=== PATIENT | male | born 2000 | race African-American/Black ===

== ENCOUNTER 2021-06-03 18:51 | Inpatient (IN) | payer OTHER, SELFPAY ==
[2021-06-03] VITALS (7 sets, daily range): BP systolic 123–150; BP diastolic 64–92; PULSE 109–112; RESP 14–18; TEMP 36.1–36.8; O2SAT 98; BMI 23.6
--- NOTE | ~2021-06-03 | CT_ITS ---
EXAMINATION: CT HEAD WITHOUT CONTRAST CLINICAL INFORMATION: Subacute mental status change. COMPARISON: None available. TECHNIQUE: Contiguous axial imaging was performed from the skull base to vertex without intravenous administration of contrast. This CT examination was performed using dose optimization techniques as appropriate, variously including the following: *Automated exposure control. *Adjustment of mA and/or kV according to patient size (this includes techniques or standardized protocols for targeted exams where dose is matched to indication/reason for exam; i.e. extremities or head). *Use of iterative reconstruction technique. DLP: 701 mGy-cm FINDINGS: There is no evidence of acute intracranial hemorrhage or edematous territorial infarction. There is no abnormal attenuation within the brain parenchyma. Garcia-white matter differentiation is preserved. The ventricles are normal in size and configuration. No evidence for obstructive hydrocephalus. No abnormal mass effect or midline shift. No extra-axial fluid collections. No acute soft tissue or osseous abnormalities. Mild mucosal thickening of the paranasal sinuses. Mild nasal septal deviation. The mastoid air cells and middle ear cavities are clear. CT/CT head/brain wo con IMPRESSION: No evidence of acute intracranial hemorrhage or edematous territorial infarction.
[2021-06-03 19:38] LABS: COVID-19 Test Negative (Negative)
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
[2021-06-03] MEDS: LORazepam 2 MG/ML VIAL IM (20:25)
[2021-06-03] MEDS: Haloperidol Lactate 5 MG/ML VIAL IM (20:25)
[2021-06-03] MEDS: diphenhydrAMINE HCL 50 MG/ML VIAL 25 MG IM (20:25)
[2021-06-03 20:46] LABS: MANUAL DIFF FLAG NO
[2021-06-03 20:47] LABS: Basophils Absolute Auto 0.1 X10*3/uL (0.0-0.2); Basophils Percent Auto 0.5 % (0-2); Eosinophils Percent Auto 0.1 % (0-4); Hemoglobin 18.6 g/dl (14.0-18.0); Imm Gran Abs Auto 0.05 X10*3/uL (0.00-0.03); Imm Gran Pct Auto 0.3 % (0.0-0.4); Lymphocytes Absolute Auto 2.2 X10*3/uL (1.2-4.9); Lymphocytes Percent Auto 14.8 % (20-40); Mean Corpuscular HGB Conc 33.6 g/dl (31.0-36.0); Mean Corpuscular Hemoglobin 30.3 pg (27.0-33.0); Mean Corpuscular Volume 90.1 fL (80.0-98.0); Mean Platelet Volume 10.3 fL (9.4-12.4); Monocytes Percent Auto 6.6 % (2-11); Neutrophils Absolute Auto 11.3 x10*3/uL (2.0-8.3); Neutrophils Percent Auto 77.7 % (45-73); Platelet Count 364 X10*3/uL (160-400); Red Blood Count 6.14 X10*6/uL (4.60-5.80); Red Cell Distribution Width 12.2 % (11.0-16.0); White Blood Count 14.5 X10*3/uL (4.8-10.8)
[2021-06-03 21:01] LABS: Ethanol < 10 mg/dL
[2021-06-03 21:13] LABS: Alanine Aminotransferase 25 U/L (0-40); Albumin Level 5.2 g/dL (3.5-5.0); Alkaline Phosphatase 123 U/L (39-117); Anion Gap 21 (12-20); Aspartate Amino Transferase 18 U/L (5-37); Bilirubin Direct 0.4 mg/dL (0.0-0.5); Blood Urea Nitrogen 10 mg/dL (9-16); Calcium 11.1 mg/dL (8.4-10.2); Carbon Dioxide 27 mmol/L (22-29); Chloride 98 mmol/L (96-108); Creatinine Clr Calc Pharmacy 101.3; Estimated Glomerular Filt Rate > 60; Glucose Random 109 mg/dL (60-115); Magnesium 2.1 mg/dL (1.6-2.6); Potassium 4.3 mmol/L (3.3-5.1); Sodium 142 mmol/L (135-145); Total Protein 8.8 g/dL (6.5-8.0)
[2021-06-03 21:26] LABS: Hematocrit 55.3 % (42.0-52.0)
--- NOTE | 2021-06-04 05:53 | PC.NURSE ---
Patient slept through the night, no distress observed/reported, patient was chemically restraint with Haldol 5 mg IM, Ativan 2 mg IM, and Benadryl 525 mg IM @ 2024 for increased aggression/throwing things/engaging in unsafe behavior, per N patient was partially evaluated by [facility] in the community, no disposition established, patient will be re-eval in the morning by [facility], med rec completed/approved, VSS, will continue to monitor.
--- NOTE | 2021-06-04 07:24 | PC.NURSE ---
patient appears to remain asleep at present respirations are even and unlabored patient appears in no distress
[2021-06-04 09:20] VITALS: BP 135/104; PULSE 114; RESP 16; TEMP 37.1; O2SAT 98
[2021-06-04 10:12] LABS: Amphetamine Screen Urine POSITIVE (Not Detect); Barbiturates, Urine Not Detected (Not Detect); Benzodiazepines Screen Urine Not Detected (Not Detect); Cannabinoid Screen Urine Not Detected (Not Detect); Cocaine Screen Urine Not Detected (Not Detect); Fentanyl, urine Not Detected (Not Detect); Opiate Screen Urine Not Detected (Not Detect); Phencyclidine Screen Urine Not Detected (Not Detect)
[2021-06-04] MEDS: hydrOXYzine HCL 50 MG TABLET PO ×2 (11:30→16:14)
--- NOTE | 2021-06-04 12:04 | PC.NURSE ---
patient needs about q5 minute reminders to maintain safe behavior states im bored climbing on furniture, intrusive with peers.
[2021-06-04] MEDS: Mirtazapine 30 MG TABLET PO (21:04)
[2021-06-04] MEDS: diphenhydrAMINE HCL 25 MG TABLET 50 MG PO ×2 (22:37→22:40)
[2021-06-04] MEDS: LORazepam 1 MG TABLET 2 MG PO ×2 (22:37→22:41)
[2021-06-04] MEDS: HaloperidoL 5 MG TABLET PO (22:37)
[2021-06-04] MEDS: Ibuprofen 600 MG TABLET PO (22:40)
[2021-06-04 23:29] VITALS: BP 156/95; PULSE 115; RESP 20; TEMP 36.7; O2SAT 97
--- NOTE | 2021-06-05 06:52 | PC.NURSE ---
Patient slept through the night, no distress observed/reported, behavior hyper-sexual, medication compliant, disorganized thought process, increased agitation provider notified/ordered Ativan 2 mg PO, Haldol 5 mg PO and Benadryl 50 mg po, administered at 2257 with positive effect, VSS, patient's disposition per [facility] is section 12 inpatient bed search, will continue to monitor.
--- NOTE | 2021-06-05 07:15 | PC.NURSE ---
patient (at start of shift) remained at rest respirations are even and unlabored, patient appears in no distress
[2021-06-05] MEDS: LORazepam 1 MG TABLET 2 MG PO ×2 (08:04→23:07)
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
--- NOTE | 2021-06-05 10:03 | PC.NURSE ---
patient exhibiting some challenging behaviors this morning, mumbling repeated statements at nurses station and not changing his verbal delivery when reuested, banging and rattling doors, climbing up on chairs and furniture and slow to be redirected, patient wanting extra support to dial a phone when yesterday client was capable. repeatedly asking same questions.
[2021-06-05] MEDS: diphenhydrAMINE HCL 25 MG TABLET 50 MG PO (10:35)
[2021-06-05] MEDS: HaloperidoL 5 MG TABLET PO ×2 (10:41→23:07)
--- NOTE | 2021-06-05 11:04 | PC.NURSE ---
patient repeatedly climbing on furniture and refusing to foilow directions
[2021-06-05 11:37] VITALS: BP 134/80; PULSE 102; RESP 18; TEMP 36.6; O2SAT 99
[2021-06-05 11:47] LABS: COVID-19 Test Negative (Negative)
[2021-06-05] MEDS: Acetaminophen 325 MG TABLET 650 MG PO ×2 (12:20→19:10)
--- NOTE | 2021-06-05 15:29 | PC.NURSE ---
administered second dose of ativan 2mg po at 1515. scanning device not working
[2021-06-05 17:25] VITALS: BMI 21.4
[2021-06-05 17:30] VITALS: BP 134/80; PULSE 95; RESP 16; TEMP 36.6; O2SAT 98
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
[2021-06-05 20:52] VITALS: BP 125/80; PULSE 98; TEMP 36.6; O2SAT 98
[2021-06-05] MEDS: Mirtazapine 30 MG TABLET PO (20:57)
[2021-06-05] MEDS: hydrOXYzine HCL 25 MG TABLET PO (21:46)
[2021-06-05] MEDS: traZODone HCL 50 MG TABLET PO ×2 (21:46→22:42)
--- NOTE | 2021-06-06 06:33 | PC.NURSE ---
patient woke up at 0630 and came to the nurses station asking for something to drink. it was noted that he had had some blood on the tip of his nose and at the corner of his left eye. left eye had been a smear from his nose. a droplet amount of blood was noted on his fitted sheet otherwise no other traces seen at this time, it was difficult illuminate his room as his roommate was asleep. patient requested the use of his phone, was informed about phone use, stated he was cold, requested and received additional blankets, fitted sheet changed, urinated, then went to bed.
[2021-06-06 09:00] VITALS: BP 145/77; PULSE 117; RESP 16; TEMP 36.7; O2SAT 98
[2021-06-06] MEDS: HaloperidoL 5 MG TABLET PO ×4 (11:19→22:39)
[2021-06-06] MEDS: LORazepam 1 MG TABLET 2 MG PO ×3 (11:19→22:39)
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
[2021-06-06] MEDS: Acetaminophen 325 MG TABLET 650 MG PO (15:14)
--- NOTE | 2021-06-06 17:26 | PC.NURSE ---
Patient placed on 1:1 constant observation. Patient is difficult to redirect, continues intrusive and inappropriate with female staff on unit. Had been pushing on exit doors, intermittently kicking the wall, stood on community room furniture. Antagonistic toward male peer on unit.
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
[2021-06-06 17:50] VITALS: BP 128/91; PULSE 109; RESP 16
[2021-06-06] MEDS: Ibuprofen 600 MG TABLET PO (17:57)
--- NOTE | 2021-06-06 18:58 | PC.NURSE ---
Patient submitted 3 day note. Up on 06/10/21.
[2021-06-06 20:54] VITALS: BP 127/68; PULSE 94; TEMP 36.7; O2SAT 95
[2021-06-06] MEDS: Mirtazapine 30 MG TABLET PO (20:59)
[2021-06-07 08:51] VITALS: BP 142/76; PULSE 108; RESP 19; TEMP 36.7; O2SAT 99
[2021-06-07] MEDS: HaloperidoL 1 MG TABLET 2 MG PO (08:52)
[2021-06-07 09:01] LABS: Alanine Aminotransferase 18 U/L (0-40); Albumin Level 4.2 g/dL (3.5-5.0); Alkaline Phosphatase 95 U/L (39-117); Aspartate Amino Transferase 17 U/L (5-37); Bilirubin Direct 0.2 mg/dL (0.0-0.5); Bilirubin Total 0.3 mg/dL (0.0-1.0); Total Protein 7.3 g/dL (6.5-8.0)
[2021-06-07] MEDS: Ibuprofen 600 MG TABLET PO (11:43)
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
[2021-06-07] MEDS: Acetaminophen 325 MG TABLET 650 MG PO (16:06)
[2021-06-07 18:00] VITALS: BP 139/83; PULSE 109; RESP 16; TEMP 36.8; O2SAT 97
[2021-06-07] MEDS: LORazepam 1 MG TABLET 2 MG PO (20:10)
[2021-06-07] MEDS: HaloperidoL 5 MG TABLET PO ×2 (20:10→20:57)
[2021-06-07] MEDS: Mirtazapine 30 MG TABLET PO (20:11)
[2021-06-07] MEDS: Benztropine Mesylate 0.5 MG TABLET PO (20:56)
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
[2021-06-08] MEDS: Ibuprofen 600 MG TABLET PO ×2 (08:01→15:56)
[2021-06-08] MEDS: HaloperidoL 1 MG TABLET 2 MG PO (08:01)
[2021-06-08 08:58] VITALS: BP 133/81; PULSE 99; RESP 18; TEMP 36.2; O2SAT 99
[2021-06-08] MEDS: HaloperidoL 5 MG TABLET PO ×3 (09:01→21:59)
[2021-06-08] MEDS: LORazepam 1 MG TABLET 2 MG PO ×5 (09:02→21:59)
--- NOTE | 2021-06-08 09:22 | PC.NURSE ---
Pt administered dose of Vyvanse 40 MG PO in error (standing order that was suppose to be held this AM). Dr. Pool and nursing blueprinting and photocopy supervisor, Lily notified. No further orders. VSS BP 133/81, P 99, RR 18, T 97.1, O2 99% RA. Will continue to monitor.
[2021-06-08] MEDS: Acetaminophen 325 MG TABLET 650 MG PO (11:21)
[2021-06-08] MEDS: HaloperidoL 5 MG TABLET 10 MG PO (13:01)
--- NOTE | 2021-06-08 16:36 | P.PNPSI_ITS ---
Subjective Subjective Date of Service: 06/08/21 Reason For Visit: SI/HI Subjective Notes: 3 Day Medical Problems Affecting Mental Status: No Interim History: And the patient. Discussed with Nursing. Noted 3 day notice. Has been very intrusive. One-to-one observation given same, provoking others. Sexual comments and proactive behavior. Has been eating Haldol and Ativan p.r.n.. Has been climbing on top of tables and chairs. Verbally hostile. Over the last 2-3 days has utilized Haldol 5 mg up to 4 times in a given day. Has also been utilizing Ativan. With engineering technical writer he is pleasant. Affect restricted. Was apologetic around behaviors yesterday. Reports he has been hearing voices for months talking about the devil. Reports wanting to return home to his mom. Did discuss medications and increasing scheduled doses given p.r.n. needs and he was open to same. Feels supported by staff. Feels safe. Sleep has been okay. Denied SI or HI. Denied medication side effects. Medication Compliance: Yes Side effects from medications: No Attending Groups: No Review of Systems Acute medical concerns: No Review of Systems Review of Systems Unremarkable Mental Status Exam Mental Status Exam Narrative: pleasant. Casually dressed. Fair hygiene. On one-to-one observation. Intrusive. Restricted affect. No SI. No HI. Does endorse command hallucinations. Sexually inappropriate comments. Insight and judgment limited Diagnostics Vital Signs (24Hr): Vital Signs - 24 hr 06/07/21 18:00 06/08/21 08:58 Temperature 98.2 F 97.1 F Pulse Rate 109 H 99 Respiratory Rate 16 18 Blood Pressure 139/83 133/81 Pulse Oximetry 97 99 BMI result Body Mass Index 21.4 Labs Results: 06/03/21 20:41 06/03/21 20:41 Labs: Laboratory Results - last 48 hr 06/07/21 08:32 Total Bilirubin 0.3 Direct Bilirubin 0.2 AST 17 ALT 18 Alkaline Phosphatase 95 D Total Protein 7.3 Albumin 4.2 Medications Medications Current Medications Acetaminophen (Acetaminophen 325 Mg Tablet) 650 mg PO Q6H PRN PRN Reason: Headache/Pain Mild Scale (1-3) Last Admin: 06/08/21 11:21 Dose: 650 mg Documented by: Al Hydroxide/Mg Hydroxide (Magnesium Hydrox/Alum Hydrox 30 Ml Oral.Susp) 30 ml PO Q6H PRN PRN Reason: Heartburn/Nausea Benztropine Mesylate (Benztropine Mesylate 0.5 Mg Tablet) 0.5 mg PO TID PRN PRN Reason: Extrapyramidal Effects Last Admin: 06/07/21 20:56 Dose: 0.5 mg Documented by: Haloperidol (Haloperidol 5 Mg Tablet) 5 mg PO Q4H PRN PRN Reason: agitation Last Admin: 06/08/21 09:01 Dose: 5 mg Documented by: Haloperidol (Haloperidol 5 Mg Tablet) 5 mg PO BEDTIME [facility] Last Admin: 06/07/21 20:10 Dose: 5 mg Documented by: Haloperidol (Haloperidol 5 Mg Tablet) 10 mg PO BID@0830,1330 [facility] Last Admin: 06/08/21 13:01 Dose: 10 mg Documented by: Hydroxyzine HCl (Hydroxyzine Hcl 25 Mg Tablet) 25 mg PO BEDTIME PRN PRN Reason: Anxiety Last Admin: 06/05/21 21:46 Dose: 25 mg Documented by: Ibuprofen (Ibuprofen 600 Mg Tablet) 600 mg PO Q8H PRN PRN Reason: Pain, Mild (Pain Scale 1-3) Last Admin: 06/08/21 15:56 Dose: 600 mg Documented by: Lorazepam (Lorazepam 1 Mg Tablet) 2 mg PO Q4H PRN PRN Reason: agitation Last Admin: 06/08/21 09:02 Dose: 2 mg Documented by: Lorazepam (Lorazepam 1 Mg Tablet) 2 mg PO QID [facility] Last Admin: 06/08/21 15:58 Dose: 2 mg Documented by: Magnesium Hydroxide (Milk Of Magnesia 30 Ml Oral.Susp) 30 ml PO DAILY PRN PRN Reason: Constipation Mirtazapine (Mirtazapine 30 Mg Tablet) 30 mg PO BEDTIME [facility] Last Admin: 06/07/21 20:11 Dose: 30 mg Documented by: Pt Own Med (Vyvanse (40mg Capsules)) 1 each PO DAILY [facility] Last Admin: 06/07/21 08:52 Dose: 1 each Documented by: Trazodone HCl (Trazodone Hcl 50 Mg Tablet) 50 mg PO BEDTIME PRN PRN Reason: Insomnia Last Admin: 06/05/21 22:42 Dose: 50 mg Documented by: Allergies Allergies Allergy/AdvReac Type Severity Reaction Status Date / Time No Known Allergies Allergy Unverified 02/02/20 17:08 [No Known Allergies*] Assessment & Plan Assessment & Plan (1) Suicidal ideation: Status: Acute Code(s): R45.851 - Suicidal ideations Assessment and Plan: reportedly resolved (2) Homicidal ideations: Status: Acute Code(s): R45.850 - Homicidal ideations Assessment and Plan: still struggling with thoughts of harming others. acknowledged 06/06 he has an anger management problem, 06/07 said his anger has gone. (3) Psychosis: Status: Acute Code(s): F29 - Unspecified psychosis not due to a substance or known physiological condition Assessment and Plan: per collateral from mother, AH are new. 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 Assessment and Plan: continue remeron. hold vyvanse as of 06/08 to see if Sx change. PRNs of haldol and ativan. collateral from mother obtained. message left for ara prescriber, to call back. 06/08: paced up p.r.n. needs, will increase schedule Haldol to 10 mg morning and afternoon 5 mg at bedtime and continue with 5 mg as needed. Will schedule Ativan 2 mg 4 times per day and 2 mg as needed. Maintain one-to-one observation I spent minutes with the patient and/or on the patient floor today, greater than?50% of which was spent counseling/coordinating care. Reason for contiued inpatient stay Substantial Risk for: harm to others, inability to function and rapid decomp ensation
[2021-06-08] MEDS: Mirtazapine 30 MG TABLET PO (20:31)
[2021-06-08 20:33] VITALS: BP 138/84; PULSE 98; TEMP 36.6
[2021-06-08] MEDS: hydrOXYzine HCL 25 MG TABLET PO (21:59)
[2021-06-09 08:13] VITALS: BP 133/88; PULSE 100; RESP 17; TEMP 36.6; O2SAT 100
[2021-06-09] MEDS: HaloperidoL 5 MG TABLET 10 MG PO ×2 (08:25→13:13)
[2021-06-09] MEDS: LORazepam 1 MG TABLET 2 MG PO ×4 (08:26→20:52)
[2021-06-09] MEDS: Acetaminophen 325 MG TABLET 650 MG PO (08:26)
--- NOTE | 2021-06-09 11:40 | HO.PSYCHPN ---
Subjective Subjective Date of Service: 06/09/21 Reason For Visit: SI/HI Interim History: Discussed with Nursing. Noted 3 day notice. Has been accepting increased doses of Haldol and Ativan on a scheduled basis since yesterday. Does appear slightly less intrusive and irritable and paranoid today. Appears slightly sedated. Sleeping well. Tolerating one-to-one observation. Appears less psychotic. Feels supported by staff. Feels safe. No evidence of SI or HI. Medication Compliance: Yes Side effects from medications: Yes ( might have some sedation) Attending Groups: No Review of Systems Acute medical concerns: No Review of Systems Review of Systems Unremarkable Yes all other systems are reviewed and are negative Mental Status Exam Mental Status Exam Narrative: pleasant. seen in room. Casually dressed. Fair hygiene. On one-to-one observation. Does appear sedate, But able to engage in interview. Affect restricted. Appears less psychotic today. Is accepting treatment but insight and judgment remains limited. Diagnostics Vital Signs (24Hr): Vital Signs - 24 hr 06/08/21 20:33 06/09/21 08:13 Temperature 97.8 F 97.8 F Pulse Rate 98 100 Respiratory Rate 17 Blood Pressure 138/84 133/88 Pulse Oximetry 100 BMI result Body Mass Index 21.4 Labs Results: 06/03/21 20:41 06/03/21 20:41 Medications Medications Current Medications Acetaminophen (Acetaminophen 325 Mg Tablet) 650 mg PO Q6H PRN PRN Reason: Headache/Pain Mild Scale (1-3) Last Admin: 06/09/21 08:26 Dose: 650 mg Documented by: Al Hydroxide/Mg Hydroxide (Magnesium Hydrox/Alum Hydrox 30 Ml Oral.Susp) 30 ml PO Q6H PRN PRN Reason: Heartburn/Nausea Benztropine Mesylate (Benztropine Mesylate 0.5 Mg Tablet) 0.5 mg PO TID PRN PRN Reason: Extrapyramidal Effects Last Admin: 06/07/21 20:56 Dose: 0.5 mg Documented by: Haloperidol (Haloperidol 5 Mg Tablet) 5 mg PO Q4H PRN PRN Reason: agitation Last Admin: 06/08/21 21:59 Dose: 5 mg Documented by: Haloperidol (Haloperidol 5 Mg Tablet) 5 mg PO BEDTIME [facility] Last Admin: 06/08/21 20:31 Dose: 5 mg Documented by: Haloperidol (Haloperidol 5 Mg Tablet) 10 mg PO BID@0830,1330 [facility] Last Admin: 06/09/21 08:25 Dose: 10 mg Documented by: Hydroxyzine HCl (Hydroxyzine Hcl 25 Mg Tablet) 25 mg PO BEDTIME PRN PRN Reason: Anxiety Last Admin: 06/08/21 21:59 Dose: 25 mg Documented by: Ibuprofen (Ibuprofen 600 Mg Tablet) 600 mg PO Q8H PRN PRN Reason: Pain, Mild (Pain Scale 1-3) Last Admin: 06/08/21 15:56 Dose: 600 mg Documented by: Lorazepam (Lorazepam 1 Mg Tablet) 2 mg PO Q4H PRN PRN Reason: agitation Last Admin: 06/08/21 21:59 Dose: 2 mg Documented by: Lorazepam (Lorazepam 1 Mg Tablet) 2 mg PO QID [facility] Last Admin: 06/09/21 08:26 Dose: 2 mg Documented by: Magnesium Hydroxide (Milk Of Magnesia 30 Ml Oral.Susp) 30 ml PO DAILY PRN PRN Reason: Constipation Mirtazapine (Mirtazapine 30 Mg Tablet) 30 mg PO BEDTIME [facility] Last Admin: 06/08/21 20:31 Dose: 30 mg Documented by: Pt Own Med (Vyvanse (40mg Capsules)) 1 each PO DAILY [facility] Last Admin: 06/07/21 08:52 Dose: 1 each Documented by: Trazodone HCl (Trazodone Hcl 50 Mg Tablet) 50 mg PO BEDTIME PRN PRN Reason: Insomnia Last Admin: 06/05/21 22:42 Dose: 50 mg Documented by: Allergies Allergies Allergy/AdvReac Type Severity Reaction Status Date / Time No Known Allergies Allergy Unverified 02/02/20 17:08 [No Known Allergies*] Assessment & Plan Assessment & Plan (1) Suicidal ideation: Status: Acute Code(s): R45.851 - Suicidal ideations Assessment and Plan: reportedly resolved (2) Homicidal ideations: Status: Acute Code(s): R45.850 - Homicidal ideations Assessment and Plan: still struggling with thoughts of harming others. acknowledged 06/06 he has an anger management problem, 06/07 said his anger has gone. (3) Psychosis: Status: Acute Code(s): F29 - Unspecified psychosis not due to a substance or known physiological condition Assessment and Plan: per collateral from mother, AH are new. 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 Assessment and Plan: continue remeron. hold vyvanse as of 06/08 to see if Sx change. PRNs of haldol and ativan. collateral from mother obtained. message left for ara, prescriber, to call back. 06/08: paced up p.r.n. needs, will increase schedule Haldol to 10 mg morning and afternoon 5 mg at bedtime and continue with 5 mg as needed. Will schedule Ativan 2 mg 4 times per day and 2 mg as needed. Maintain one-to-one observation 06/09: Does appear to be less psychotic, less intrusive and impulsive and irritable with scheduled Haldol and Ativan. May be having some sedation on same. Balancing mental state and sedation, would continue current regimen and continue to review this on a daily basis plus or minus adjust medications if there is ongoing sedation and mental state is improving. Remains on one-to-one observation and this should be continued to reviewed on a daily basis. I spent minutes with the patient and/or on the patient floor today, greater than?50% of which was spent counseling/coordinating care. Reason for contiued inpatient stay Substantial Risk for: inability to function
[2021-06-09 18:00] VITALS: BP 150/94; PULSE 99; RESP 18; TEMP 36.8; O2SAT 100
[2021-06-09] MEDS: traZODone HCL 50 MG TABLET PO (20:52)
[2021-06-09] MEDS: Mirtazapine 30 MG TABLET PO (20:52)
[2021-06-09] MEDS: hydrOXYzine HCL 25 MG TABLET PO (20:53)
[2021-06-09] MEDS: HaloperidoL 5 MG TABLET PO (21:08)
[2021-06-10] MEDS: Magnesium Hydrox/Alum Hydrox 30 ML ORAL.SUSP PO (02:00)
[2021-06-10] MEDS: Ibuprofen 600 MG TABLET PO (02:00)
[2021-06-10 06:00] VITALS: BP 127/80; PULSE 91; TEMP 36.1; O2SAT 100
[2021-06-10] MEDS: LORazepam 1 MG TABLET 2 MG PO ×2 (08:29→12:59)
[2021-06-10] MEDS: HaloperidoL 5 MG TABLET 10 MG PO ×2 (08:30→12:58)
--- NOTE | 2021-06-10 16:48 | P.PNPSI_ITS ---
Subjective Subjective Date of Service: 06/10/21 Reason For Visit: SI/HI Interim History: pt alva in his room late morning, asleep, rousable to voice. did not get out of bed for interview, fell back asleep repeatedly. asked for discharge today. informed both his mother and his doctor think he should stay; he seemed initially responsive to this information and seemed to indicate he might stay then; he was informed he could sign in voluntarily if that were the case. shortly afterward he again asked to leave today. no other requests or complaints. per staff, on 1:1 for inappropriate sexualized and intrusive behaviors. per staff, telling female staff he wants to fuck the shit out of them. also has asked female peers if they date men and is otherwise intrusive and inappropriate. pacing the halls much, sometimes sprinting the halls. eating and sleeping well. med-compliant. Mental Status Exam Mental Status Exam Narrative: somnolent, under bedsheets lying in bed, cooperative with interview. no PMA/PMR observed. speech soft, slowed, slurred slightly. thoughts linear, logic questionable. affect blunted. Diagnostics Vital Signs (24Hr): Vital Signs - 24 hr 06/09/21 18:00 06/10/21 06:00 Temperature 98.2 F 96.9 F Pulse Rate 99 91 Respiratory Rate 18 Blood Pressure 150/94 H 127/80 Pulse Oximetry 100 100 BMI result Body Mass Index 21.4 Labs Results: 06/03/21 20:41 06/03/21 20:41 Medications Medications Current Medications Acetaminophen (Acetaminophen 325 Mg Tablet) 650 mg PO Q6H PRN PRN Reason: Headache/Pain Mild Scale (1-3) Last Admin: 06/09/21 08:26 Dose: 650 mg Documented by: Al Hydroxide/Mg Hydroxide (Magnesium Hydrox/Alum Hydrox 30 Ml Oral.Susp) 30 ml PO Q6H PRN PRN Reason: Heartburn/Nausea Last Admin: 06/10/21 02:00 Dose: 30 ml Documented by: Benztropine Mesylate (Benztropine Mesylate 0.5 Mg Tablet) 0.5 mg PO TID PRN PRN Reason: Extrapyramidal Effects Last Admin: 06/07/21 20:56 Dose: 0.5 mg Documented by: Haloperidol (Haloperidol 5 Mg Tablet) 5 mg PO Q4H PRN PRN Reason: agitation Last Admin: 06/08/21 21:59 Dose: 5 mg Documented by: Haloperidol (Haloperidol 5 Mg Tablet) 5 mg PO BEDTIME [facility] Last Admin: 06/09/21 21:08 Dose: 5 mg Documented by: Haloperidol (Haloperidol 5 Mg Tablet) 10 mg PO BID@0830,1330 [facility] Last Admin: 06/10/21 12:58 Dose: 10 mg Documented by: Hydroxyzine HCl (Hydroxyzine Hcl 25 Mg Tablet) 25 mg PO BEDTIME PRN PRN Reason: Anxiety Last Admin: 06/09/21 20:53 Dose: 25 mg Documented by: Ibuprofen (Ibuprofen 600 Mg Tablet) 600 mg PO Q8H PRN PRN Reason: Pain, Mild (Pain Scale 1-3) Last Admin: 06/10/21 02:00 Dose: 600 mg Documented by: Lorazepam (Lorazepam 1 Mg Tablet) 2 mg PO Q4H PRN PRN Reason: agitation Last Admin: 06/08/21 21:59 Dose: 2 mg Documented by: Lorazepam (Lorazepam 1 Mg Tablet) 2 mg PO QID [facility] Last Admin: 06/10/21 12:59 Dose: 2 mg Documented by: Magnesium Hydroxide (Milk Of Magnesia 30 Ml Oral.Susp) 30 ml PO DAILY PRN PRN Reason: Constipation Mirtazapine (Mirtazapine 30 Mg Tablet) 30 mg PO BEDTIME [facility] Last Admin: 06/09/21 20:52 Dose: 30 mg Documented by: Pt Own Med (Vyvanse (40mg Capsules)) 1 each PO DAILY [facility] Last Admin: 06/07/21 08:52 Dose: 1 each Documented by: Trazodone HCl (Trazodone Hcl 50 Mg Tablet) 50 mg PO BEDTIME PRN PRN Reason: Insomnia Last Admin: 06/09/21 20:52 Dose: 50 mg Documented by: Allergies Allergies Allergy/AdvReac Type Severity Reaction Status Date / Time No Known Allergies Allergy Unverified 02/02/20 17:08 [No Known Allergies*] Assessment & Plan Assessment & Plan (1) Suicidal ideation: Status: Acute Code(s): R45.851 - Suicidal ideations Assessment and Plan: reportedly resolved (2) Homicidal ideations: Status: Acute Code(s): R45.850 - Homicidal ideations Assessment and Plan: still struggling with thoughts of harming others. acknowledged 06/06 he has an anger management problem, 06/07 said his anger has gone. (3) Psychosis: Status: Acute Code(s): F29 - Unspecified psychosis not due to a substance or known physiological condition Assessment and Plan: per collateral from mother, AH are new. 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 Assessment and Plan: continue remeron. hold vyvanse as of 06/08 to see if Sx change. PRNs of haldol and ativan. collateral from mother obtained. message left for ara prescriber, to call back. 06/08: paced up p.r.n. needs, will increase schedule Haldol to 10 mg morning and afternoon 5 mg at bedtime and continue with 5 mg as needed. Will schedule Ativan 2 mg 4 times per day and 2 mg as needed. Maintain one-to-one observation 06/09: Does appear to be less psychotic, less intrusive and impulsive and irritable with scheduled Haldol and Ativan. May be having some sedation on same. Balancing mental state and sedation, would continue current regimen and continue to review this on a daily basis plus or minus adjust medications if there is ongoing sedation and mental state is improving. Remains on one-to-one observation and this should be continued to reviewed on a daily basis. 06/10: backing off haldol and ativan a bit today due to sedation. further labs to search for any as yet unidentified organic basis for this mental status change. I spent minutes with the patient and/or on the patient floor today, greater than?50% of which was spent counseling/coordinating care. Reason for contiued inpatient stay Substantial Risk for: harm to self, harm to others, inability to function and rapid decompensation
[2021-06-10] MEDS: LORazepam 1 MG TABLET PO (17:26)
[2021-06-10 18:00] VITALS: BP 135/81; PULSE 102; TEMP 36.8; O2SAT 98
--- NOTE | 2021-06-11 00:35 | PC.NURSE ---
Patient declined blood draw, will notify
[2021-06-11 06:00] VITALS: BP 135/78; PULSE 114; RESP 18; TEMP 36.8; O2SAT 97
[2021-06-11] MEDS: HaloperidoL 5 MG TABLET PO ×2 (08:51→13:29)
[2021-06-11] MEDS: LORazepam 1 MG TABLET PO ×4 (08:51→20:48)
[2021-06-11] MEDS: Acetaminophen 325 MG TABLET 650 MG PO (11:11)
[2021-06-11 13:19] LABS: Appearance Urine CLEAR; Color Urine YELLOW; Glucose Urine UA NEG (NEG); Leukocyte Esterase Urine NEG (NEG); Nitrite Urine NEG (NEG); Urine Blood NEG (NEG); Urine Ketones NEG (NEG); Urine Protein NEG (NEG-TRACE)
--- NOTE | 2021-06-11 14:48 | P.PNPSI_ITS ---
Subjective Subjective Date of Service: 06/11/21 Reason For Visit: SI/HI Interim History: pt requesting to see MD. states repeatedly he would like to discharge. told repeatedly neither his mother, nor his outpt psychiatrist, nor the inpatient team think it is a good idea to discharge until he is more his usual self. he was provided with the pardo warning. he accused peers of inciting conflict on the unit (staff report is uniformly that he is intrusive and provocative with peers). he was somewhat irritable. he did not have further questions or material for MD aside from that he wanted to discharge. per staff, 3-day matures today. has been refusing labs and urine. wandering, p acing, swearing at staff, making inappropriate gestures. slept much of andrew shift. remains on 1:1. med-compliant. head CT unremarkable. Mental Status Exam Mental Status Exam Narrative: somnolent, ambulating on the unit, cooperative with interview. general PMR. speech soft, slowed, slurred slightly. thoughts somewhat perseverative on discharge, logic questionable. affect blunted. no SI/HI/AVH expressed. Diagnostics Vital Signs (24Hr): Vital Signs - 24 hr 06/10/21 18:00 06/11/21 06:00 Temperature 98.3 F 98.3 F Pulse Rate 102 H 114 H Respiratory Rate 18 Blood Pressure 135/81 135/78 Pulse Oximetry 98 97 BMI result Body Mass Index 21.4 Labs Results: 06/03/21 20:41 06/03/21 20:41 Labs: Laboratory Results - last 48 hr 06/11/21 10:05 Urine Color YELLOW Urine Appearance CLEAR Urine pH 8.0 Ur Specific [place] 1.020 Urine Protein NEG Urine Glucose (UA) NEG Urine Ketones NEG Urine Blood NEG Urine Nitrite NEG Ur Leukocyte Esterase NEG Imaging Radiology Impressions: ITS Impressions Head CT 06/10/21 17:52 IMPRESSION: No evidence of acute intracranial hemorrhage or edematous territorial infarction. Medications Medications Current Medications Acetaminophen (Acetaminophen 325 Mg Tablet) 650 mg PO Q6H PRN PRN Reason: Headache/Pain Mild Scale (1-3) Last Admin: 06/11/21 11:11 Dose: 650 mg Documented by: Al Hydroxide/Mg Hydroxide (Magnesium Hydrox/Alum Hydrox 30 Ml Oral.Susp) 30 ml PO Q6H PRN PRN Reason: Heartburn/Nausea Last Admin: 06/10/21 02:00 Dose: 30 ml Documented by: Benztropine Mesylate (Benztropine Mesylate 0.5 Mg Tablet) 0.5 mg PO TID PRN PRN Reason: Extrapyramidal Effects Last Admin: 06/07/21 20:56 Dose: 0.5 mg Documented by: Haloperidol (Haloperidol 5 Mg Tablet) 5 mg PO Q4H PRN PRN Reason: agitation Last Admin: 06/08/21 21:59 Dose: 5 mg Documented by: Haloperidol (Haloperidol 5 Mg Tablet) 10 mg PO BEDTIME [facility] Last Admin: 06/11/21 06:34 Dose: Not Given Documented by: Haloperidol (Haloperidol 5 Mg Tablet) 5 mg PO BID@0830,1330 [facility] Last Admin: 06/11/21 13:29 Dose: 5 mg Documented by: Hydroxyzine HCl (Hydroxyzine Hcl 25 Mg Tablet) 25 mg PO BEDTIME PRN PRN Reason: Anxiety Last Admin: 06/09/21 20:53 Dose: 25 mg Documented by: Ibuprofen (Ibuprofen 600 Mg Tablet) 600 mg PO Q8H PRN PRN Reason: Pain, Mild (Pain Scale 1-3) Last Admin: 06/10/21 02:00 Dose: 600 mg Documented by: Lorazepam (Lorazepam 1 Mg Tablet) 1 mg PO QID [facility] Last Admin: 06/11/21 13:29 Dose: 1 mg Documented by: Magnesium Hydroxide (Milk Of Magnesia 30 Ml Oral.Susp) 30 ml PO DAILY PRN PRN Reason: Constipation Mirtazapine (Mirtazapine 30 Mg Tablet) 30 mg PO BEDTIME [facility] Last Admin: 06/11/21 06:35 Dose: Not Given Documented by: Pt Own Med (Vyvanse (40mg Capsules)) 1 each PO DAILY [facility] Last Admin: 06/07/21 08:52 Dose: 1 each Documented by: Trazodone HCl (Trazodone Hcl 50 Mg Tablet) 50 mg PO BEDTIME PRN PRN Reason: Insomnia Last Admin: 06/09/21 20:52 Dose: 50 mg Documented by: Allergies Allergies Allergy/AdvReac Type Severity Reaction Status Date / Time No Known Allergies Allergy Unverified 02/02/20 17:08 [No Known Allergies*] Assessment & Plan Assessment & Plan (1) Suicidal ideation: Status: Acute Code(s): R45.851 - Suicidal ideations Assessment and Plan: reportedly resolved (2) Homicidal ideations: Status: Acute Code(s): R45.850 - Homicidal ideations Assessment and Plan: still struggling with thoughts of harming others. acknowledged 06/06 he has an anger management problem, 06/07 said his anger has gone. (3) Psychosis: Status: Acute Code(s): F29 - Unspecified psychosis not due to a substance or known physiological condition Assessment and Plan: per collateral from mother, AH are new. 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 Assessment and Plan: continue remeron. hold vyvanse as of 06/08 to see if Sx change. PRNs of haldol and ativan. collateral from mother obtained. message left for ara, prescriber, to call back. 06/08: paced up p.r.n. needs, will increase schedule Haldol to 10 mg morning and afternoon 5 mg at bedtime and continue with 5 mg as needed. Will schedule Ativan 2 mg 4 times per day and 2 mg as needed. Maintain one-to-one observation 06/09: Does appear to be less psychotic, less intrusive and impulsive and irritable with scheduled Haldol and Ativan. May be having some sedation on same. Balancing mental state and sedation, would continue current regimen and continue to review this on a daily basis plus or minus adjust medications if there is ongoing sedation and mental state is improving. Remains on one-to-one observation and this should be continued to reviewed on a daily basis. 06/10: backing off haldol and ativan a bit today due to sedation. further labs to search for any as yet unidentified organic basis for this mental status change. per collateral from outpt provider, dr. bullock at [facility], this is very v kasi far from pt's baseline. 06/11: will re-order labs as pt refused them. U/A and head CT WNL. filed for commitment today. I spent minutes with the patient and/or on the patient floor today, greater than?50% of which was spent counseling/coordinating care. Reason for contiued inpatient stay Substantial Risk for: harm to others and inability to function
[2021-06-11 16:45] LABS: MANUAL DIFF FLAG NO
[2021-06-11 16:52] LABS: Basophils Absolute Auto 0.1 X10*3/uL (0.0-0.2); Basophils Percent Auto 0.9 % (0-2); Eosinophils Absolute Auto 0.1 X10*3/uL (0.0-0.4); Eosinophils Percent Auto 0.7 % (0-4); Hematocrit 46.4 % (42.0-52.0); Hemoglobin 15.6 g/dl (14.0-18.0); Imm Gran Abs Auto 0.03 X10*3/uL (0.00-0.03); Imm Gran Pct Auto 0.4 % (0.0-0.4); Lymphocytes Absolute Auto 1.8 X10*3/uL (1.2-4.9); Lymphocytes Percent Auto 22.2 % (20-40); Mean Corpuscular HGB Conc 33.6 g/dl (31.0-36.0); Mean Corpuscular Hemoglobin 30.4 pg (27.0-33.0); Mean Corpuscular Volume 90.4 fL (80.0-98.0); Mean Platelet Volume 9.9 fL (9.4-12.4); Monocytes Absolute Auto 0.5 X10*3/uL (0.1-1.2); Neutrophils Absolute Auto 5.7 x10*3/uL (2.0-8.3); Neutrophils Percent Auto 69.8 % (45-73); Platelet Count 300 X10*3/uL (160-400); Red Blood Count 5.13 X10*6/uL (4.60-5.80); Red Cell Distribution Width 12.3 % (11.0-16.0); White Blood Count 8.2 X10*3/uL (4.8-10.8)
[2021-06-11 17:04] LABS: Anion Gap 14 (12-20); Blood Urea Nitrogen 10 mg/dL (9-16); Calcium 9.9 mg/dL (8.4-10.2); Carbon Dioxide 30 mmol/L (22-29); Chloride 101 mmol/L (96-108); Estimated Glomerular Filt Rate > 60; Glucose Random 97 mg/dL (60-115); Magnesium 1.9 mg/dL (1.6-2.6); Potassium 4.1 mmol/L (3.3-5.1); Sodium 141 mmol/L (135-145)
[2021-06-11 17:23] LABS: TSH reflex Free T4 0.32 uIU/mL (0.32-4.0)
[2021-06-11 17:39] LABS: Folate 12.4 ng/mL (> or = 4.0); Vitamin B12 543 pg/mL (200-900)
[2021-06-11] MEDS: Ibuprofen 600 MG TABLET PO (20:00)
[2021-06-11 20:45] VITALS: BP 132/74; PULSE 85; TEMP 36.8; O2SAT 97
[2021-06-11] MEDS: hydrOXYzine HCL 25 MG TABLET PO (20:48)
[2021-06-11] MEDS: HaloperidoL 5 MG TABLET 10 MG PO (20:49)
[2021-06-11] MEDS: Mirtazapine 30 MG TABLET PO (20:49)
[2021-06-12 08:45] VITALS: BP 118/75; PULSE 104; RESP 16; TEMP 36.9; O2SAT 98
[2021-06-12] MEDS: LORazepam 1 MG TABLET PO ×2 (08:49→13:04)
[2021-06-12] MEDS: HaloperidoL 5 MG TABLET PO ×2 (08:49→13:05)
--- NOTE | 2021-06-12 15:47 | P.PNPSI_ITS ---
Subjective Subjective Date of Service: 06/12/21 Reason For Visit: SI/HI Interim History: pt appears more cogent today than previous. able to acknowledge he has been making inappropriate sexualized comments to people. did recall asking male staff, do you like big dicks or little dicks? denies SI/HI. does endorse AH of god and devil arguing against one another telling him things to do or not do. asking to zoom joceline with his mom, which will be done with help of 1:1 staff today. discuss backing off again on some of th emore sedating medications he is on. per staff, pacing, poor boundaries, threatening and swearing at staff and peers. eves asking intrusive questions. labs all WNL. VSS. see SW note for collateral from pt's aunt, who was present at pt's home prior to his admission. Mental Status Exam Mental Status Exam Narrative: somnolent, ambulating on the unit, cooperative with interview. general PMR. speech soft, slowed, slurred slightly. thoughts somewhat perseverative on discharge, logic questionable. affect blunted. no SI/HI/VH expressed. endorses AH of the devil and god. Diagnostics Vital Signs (24Hr): Vital Signs - 24 hr 06/11/21 20:45 06/12/21 08:45 Temperature 98.3 F 98.4 F Pulse Rate 85 104 H Respiratory Rate 16 Blood Pressure 132/74 118/75 Pulse Oximetry 97 98 BMI result [place] 4 Body Mass Index [place] 4 21.4 [place] 4 [place] 4 Labs Results: 06/11/21 16:36 06/11/21 16:36 Labs: Laboratory Results - last 48 hr 06/11/21 06/11/21 06/11/21 10:05 16:36 16:36 WBC 8.2 RBC 5.13 Hgb 15.6 Hct 46.4 MCV 90.4 MCH 30.4 MCHC 33.6 RDW 12.3 Plt Count 300 MPV 9.9 Immature Gran % (Auto) 0.4 Neut % (Auto) 69.8 Lymph % (Auto) 22.2 [place] % (Auto) 6.0 Eos % (Auto) 0.7 Baso % (Auto) 0.9 Lymph # (Auto) 1.8 [place] # (Auto) 0.5 Eos # (Auto) 0.1 Baso # (Auto) 0.1 Abs Immat Gran (auto) 0.03 Absolute Neuts (auto) 5.7 Absolute Nucleated RBC 0.000 Nucleated RBC % (auto) 0.0 Sodium 141 Potassium 4.1 Chloride 101 Carbon Dioxide 30 H Anion Gap 14 BUN 10 Creatinine 1.21 Estim Creat Clear Calc 93.0 Estimated GFR > 60 Random Glucose 97 Calcium 9.9 D Phosphorus 4.0 Magnesium 1.9 Vitamin B12 Folate TSH 0.32 Urine Color YELLOW Urine Appearance CLEAR Urine pH 8.0 Ur Specific [place] 1.020 Urine Protein NEG Urine Glucose (UA) NEG Urine Ketones NEG Urine Blood NEG Urine Nitrite NEG Ur Leukocyte Esterase NEG 06/11/21 16:36 WBC RBC Hgb Hct MCV MCH MCHC RDW Plt Count MPV Immature Gran % (Auto) Neut % (Auto) Lymph % (Auto) [place] % (Auto) Eos % (Auto) Baso % (Auto) Lymph # (Auto) [place] # (Auto) Eos # (Auto) Baso # (Auto) Abs Immat Gran (auto) Absolute Neuts (auto) Absolute Nucleated RBC Nucleated RBC % (auto) Sodium Potassium Chloride Carbon Dioxide Anion Gap BUN Creatinine Estim Creat Clear Calc Estimated GFR Random Glucose Calcium Phosphorus Magnesium Vitamin B12 543 Folate 12.4 TSH Urine Color Urine Appearance Urine pH Ur Specific [place] Urine Protein Urine Glucose (UA) Urine Ketones Urine Blood Urine Nitrite Ur Leukocyte Esterase Imaging Radiology Impressions: ITS Impressions Head CT 06/10/21 17:52 IMPRESSION: No evidence of acute intracranial hemorrhage or edematous territorial infarction. Medications Medications Current Medications Acetaminophen (Acetaminophen 325 Mg Tablet) 650 mg PO Q6H PRN PRN Reason: Headache/Pain Mild Scale (1-3) Last Admin: 06/11/21 11:11 Dose: 650 mg Documented by: Al Hydroxide/Mg Hydroxide (Magnesium Hydrox/Alum Hydrox 30 Ml Oral.Susp) 30 ml PO Q6H PRN PRN Reason: Heartburn/Nausea Last Admin: 06/10/21 02:00 Dose: 30 ml Documented by: Benztropine Mesylate (Benztropine Mesylate 0.5 Mg Tablet) 0.5 mg PO TID PRN PRN Reason: Extrapyramidal Effects Last Admin: 06/07/21 20:56 Dose: 0.5 mg Documented by: Haloperidol (Haloperidol 5 Mg Tablet) 5 mg PO Q4H PRN PRN Reason: agitation Last Admin: 06/08/21 21:59 Dose: 5 mg Documented by: Haloperidol (Haloperidol 5 Mg Tablet) 10 mg PO BEDTIME [facility] Last Admin: 06/11/21 20:49 Dose: 10 mg Documented by: Haloperidol (Haloperidol 5 Mg Tablet) 5 mg PO BID@0830,1330 [facility] Last Admin: 06/12/21 13:05 Dose: 5 mg Documented by: Hydroxyzine HCl (Hydroxyzine Hcl 25 Mg Tablet) 25 mg PO BEDTIME PRN PRN Reason: Anxiety Last Admin: 06/11/21 20:48 Dose: 25 mg Documented by: Ibuprofen (Ibuprofen 600 Mg Tablet) 600 mg PO Q8H PRN PRN Reason: Pain, Mild (Pain Scale 1-3) Last Admin: 06/11/21 20:00 Dose: 600 mg Documented by: Lorazepam (Lorazepam 1 Mg Tablet) 1 mg PO QID [facility] Last Admin: 06/12/21 13:04 Dose: 1 mg Documented by: Magnesium Hydroxide (Milk Of Magnesia 30 Ml Oral.Susp) 30 ml PO DAILY PRN PRN Reason: Constipation Mirtazapine (Mirtazapine 30 Mg Tablet) 30 mg PO BEDTIME [facility] Last Admin: 06/11/21 20:49 Dose: 30 mg Documented by: Pt Own Med (Vyvanse (40mg Capsules)) 1 each PO DAILY [facility] Last Admin: 06/07/21 08:52 Dose: 1 each Documented by: Trazodone HCl (Trazodone Hcl 50 Mg Tablet) 50 mg PO BEDTIME PRN PRN Reason: Insomnia Last Admin: 06/09/21 20:52 Dose: 50 mg Documented by: Allergies Allergies Allergy/AdvReac Type Severity Reaction Status Date / Time No Known Allergies Allergy Unverified 02/02/20 17:08 [No Known Allergies*] Assessment & Plan Assessment & Plan (1) Suicidal ideation: Status: Acute Code(s): R45.851 - Suicidal ideations Assessment and Plan: reportedly resolved (2) Homicidal ideations: Status: Acute Code(s): R45.850 - Homicidal ideations Assessment and Plan: resolved. acknowledged 06/06 he has an anger management problem, 06/07 said his anger has gone. (3) Psychosis: Status: Acute Code(s): F29 - Unspecified psychosis not due to a substance or known physiological co ndition Assessment and Plan: per collateral from mother, AH are new. 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 Plan continue remeron. hold vyvanse as of 06/08 to see if Sx change. PRNs of haldol and ativan. collateral from mother obtained. message left for ara, prescriber, to call back. 06/08: paced up p.r.n. needs, will increase schedule Haldol to 10 mg morning and afternoon 5 mg at bedtime and continue with 5 mg as needed. Will schedule Ativan 2 mg 4 times per day and 2 mg as needed. Maintain one-to-one observation 06/09: Does appear to be less psychotic, less intrusive and impulsive and irritable with scheduled Haldol and Ativan. May be having some sedation on same. Balancing mental state and sedation, would continue current regimen and continue to review this on a daily basis plus or minus adjust medications if th ere is ongoing sedation and mental state is improving. Remains on one-to-one observation and this should be continued to reviewed on a daily basis. 06/10: backing off haldol and ativan a bit today due to sedation. further labs to search for any as yet unidentified organic basis for this mental status change. per collateral from outpt provider, dr. bullock at [facility], this is very very far from pt's baseline. 06/11: will re-order labs as pt refused them. U/A and head CT WNL. filed for commitment today. 06/12: labs WNL. decreasing daytime ativan. I spent minutes with the patient and/or on the patient floor today, greater than?50% of which was spent counseling/coordinating care. Reason for contiued inpatient stay Substantial Risk for: harm to self, harm to others, inability to function and rapid decompensation
[2021-06-12] MEDS: LORazepam 0.5 MG TABLET PO ×2 (17:36→21:07)
[2021-06-12] MEDS: HaloperidoL 5 MG TABLET 10 MG PO (21:07)
[2021-06-12] MEDS: Mirtazapine 30 MG TABLET PO (21:07)
[2021-06-12 21:10] VITALS: BP 135/75; PULSE 76; TEMP 36.8; O2SAT 99
[2021-06-13 07:00] VITALS: BMI 22.3
[2021-06-13] MEDS: LORazepam 0.5 MG TABLET PO ×3 (08:29→21:33)
[2021-06-13] MEDS: HaloperidoL 5 MG TABLET PO ×2 (08:30→13:30)
[2021-06-13 08:45] VITALS: BP 99/58; PULSE 73; RESP 16; TEMP 36.6; O2SAT 94
--- NOTE | 2021-06-13 15:49 | HO.PSYCHPN ---
Subjective Subjective Date of Service: 06/13/21 Reason For Visit: SI/HI Interim History: pt encountered sleeping in his room. easily rousable. lauded pt for maintaining better interpersonal boundaries, not making sexually inappropriate comments. pt recognized the praise and thanked . he then returned to sleep. per staff, pt asked staff stanely out on a date but did not make any inappropriate sexual comments. he removed himself from the common area after becoming aroused at one point. not intrusive with peers. Mental Status Exam Mental Status Exam Narrative: somnolent, lying in bed, cooperative with interview. general PMR. speech soft, slowed, slurred slightly. thoughts superficially linear and logical. affect blunted. no SI/HI/AVH expressed. Diagnostics Vital Signs (24Hr): Vital Signs - 24 hr 06/12/21 21:10 06/13/21 08:45 Temperature 98.3 F 97.9 F Pulse Rate 76 73 Respiratory Rate 16 Blood Pressure 135/75 99/58 L Pulse Oximetry 99 94 BMI result Body Mass Index 22.3 Labs Results: 06/11/21 16:36 06/11/21 16:36 Labs: Laboratory Results - last 48 hr 06/11/21 06/11/21 06/11/21 16:36 16:36 16:36 WBC 8.2 RBC 5.13 Hgb 15.6 Hct 46.4 MCV 90.4 MCH 30.4 MCHC 33.6 RDW 12.3 Plt Count 300 MPV 9.9 Immature Gran % (Auto) 0.4 Neut % (Auto) 69.8 Lymph % (Auto) 22.2 [place] % (Auto) 6.0 Eos % (Auto) 0.7 Baso % (Auto) 0.9 Lymph # (Auto) 1.8 [place] # (Auto) 0.5 Eos # (Auto) 0.1 Baso # (Auto) 0.1 Abs Immat Gran (auto) 0.03 Absolute Neuts (auto) 5.7 Absolute Nucleated RBC 0.000 Nucleated RBC % (auto) 0.0 Sodium 141 Potassium 4.1 Chloride 101 Carbon Dioxide 30 H Anion Gap 14 BUN 10 Creatinine 1.21 Estim Creat Clear Calc 93.0 Estimated GFR > 60 Random Glucose 97 Calcium 9.9 D Phosphorus 4.0 Magnesium 1.9 Vitamin B12 543 Folate 12.4 TSH 0.32 Imaging Radiology Impressions: ITS Impressions Head CT 06/10/21 17:52 IMPRESSION: No evidence of acute intracranial hemorrhage or edematous territorial infarction. Medications Medications Current Medications Acetaminophen (Acetaminophen 325 Mg Tablet) 650 mg PO Q6H PRN PRN Reason: Headache/Pain Mild Scale (1-3) Last Admin: 06/11/21 11:11 Dose: 650 mg Documented by: Al Hydroxide/Mg Hydroxide (Magnesium Hydrox/Alum Hydrox 30 Ml Oral.Susp) 30 ml PO Q6H PRN PRN Reason: Heartburn/Nausea Last Admin: 06/10/21 02:00 Dose: 30 ml Documented by: Benztropine Mesylate (Benztropine Mesylate 0.5 Mg Tablet) 0.5 mg PO TID PRN PRN Reason: Extrapyramidal Effects Last Admin: 06/07/21 20:56 Dose: 0.5 mg Documented by: Haloperidol (Haloperidol 5 Mg Tablet) 5 mg PO Q4H PRN PRN Reason: agitation Last Admin: 06/08/21 21:59 Dose: 5 mg Documented by: Haloperidol (Haloperidol 5 Mg Tablet) 10 mg PO BEDTIME [facility] Last Admin: 06/12/21 21:07 Dose: 10 mg Documented by: Haloperidol (Haloperidol 5 Mg Tablet) 5 mg PO BID@0830,1330 [facility] Last Admin: 06/13/21 13:30 Dose: 5 mg Documented by: Hydroxyzine HCl (Hydroxyzine Hcl 25 Mg Tablet) 25 mg PO BEDTIME PRN PRN Reason: Anxiety Last Admin: 06/11/21 20:48 Dose: 25 mg Documented by: Ibuprofen (Ibuprofen 600 Mg Tablet) 600 mg PO Q8H PRN PRN Reason: Pain, Mild (Pain Scale 1-3) Last Admin: 06/11/21 20:00 Dose: 600 mg Documented by: Lorazepam (Lorazepam 0.5 Mg Tablet) 0.5 mg PO QID [facility] Last Admin: 06/13/21 13:29 Dose: 0.5 mg Documented by: Magnesium Hydroxide (Milk Of Magnesia 30 Ml Oral.Susp) 30 ml PO DAILY PRN PRN Reason: Constipation Mirtazapine (Mirtazapine 30 Mg Tablet) 30 mg PO BEDTIME [facility] Last Admin: 06/12/21 21:07 Dose: 30 mg Documented by: Pt Own Med (Vyvanse (40mg Capsules)) 1 each PO DAILY [facility] Last Admin: 06/07/21 08:52 Dose: 1 each Documented by: Trazodone HCl (Trazodone Hcl 50 Mg Tablet) 50 mg PO BEDTIME PRN PRN Reason: Insomnia Last Admin: 06/09/21 20:52 Dose: 50 mg Documented by: Allergies Allergies Allergy/AdvReac Type Severity Reaction Status Date / Time No Known Allergies Allergy Unverified 02/02/20 17:08 [No Known Allergies*] Assessment & Plan Assessment & Plan (1) Suicidal ideation: Status: Acute Code(s): R45.851 - Suicidal ideations Assessment and Plan: reportedly resolved (2) Homicidal ideations: Status: Acute Code(s): R45.850 - Homicidal ideations Assessment and Plan: resolved. acknowledged 06/06 he has an anger management problem, 06/07 said his anger has gone. (3) Psychosis: Status: Acute Code(s): F29 - Unspecified psychosis not due to a substance or known physiological condition Assessment and Plan: per collateral from mother, AH are new. 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 Plan continue remeron. hold vyvanse as of 06/08 to see if Sx change. PRNs of haldol and ativan. collateral from mother obtained. message left for ara, prescriber, to call back. 06/08: paced up p.r.n. needs, will increase schedule Haldol to 10 mg morning and afternoon 5 mg at bedtime and continue with 5 mg as needed. Will schedule Ativan 2 mg 4 times per day and 2 mg as needed. Maintain one-to-one observation 06/09: Does appear to be less psychotic, less intrusive and impulsive and irritable with scheduled Haldol and Ativan. May be having some sedation on same. Balancing mental state and sedation, would continue current regimen and continue to review this on a daily basis plus or minus adjust medications if there is ongoing sedation and mental state is improving. Remains on one-to-one observation and this should be continued to reviewed on a daily basis. 06/10: backing off haldol and ativan a bit today due to sedation. further labs to search for any as yet unidentified organic basis for this mental status change. per collateral from outpt provider, dr. bullock at [facility], this is very very far from pt's baseline. 06/11: will re-order labs as pt refused them. U/A and head CT WNL. filed for commitment today. 06/12: labs WNL. decreasing daytime ativan. 06/13: ativan decreased from 0.5 mg QID to 0.5 mg TID. seems to have more insight and better ability to control his behavior in the past 24H. I spent minutes with the patient and/or on the patient floor today, greater than?50% of which was spent counseling/coordinating care. Reason for contiued inpatient stay Substantial Risk for: harm to self, harm to others, inability to function and rapid decompensation
[2021-06-13 18:00] VITALS: BP 105/66; PULSE 66; RESP 16; TEMP 36.7; O2SAT 98
[2021-06-13] MEDS: Mirtazapine 30 MG TABLET PO (21:33)
[2021-06-13] MEDS: HaloperidoL 5 MG TABLET 10 MG PO (21:33)
[2021-06-14] MEDS: HaloperidoL 5 MG TABLET PO (09:37)
[2021-06-14] MEDS: LORazepam 0.5 MG TABLET PO ×2 (09:37→21:21)
[2021-06-14 10:27] VITALS: BP 140/83; PULSE 103; RESP 16; TEMP 36.8; O2SAT 96
[2021-06-14] MEDS: HaloperidoL 1 MG TABLET 2 MG PO (13:12)
--- NOTE | 2021-06-14 14:00 | P.PNPSI_ITS ---
Subjective Subjective Date of Service: 06/14/21 Reason For Visit: SI/HI Interim History: pt found sleeping in his bed. rousable to voice. feeling sedated by meds. informs him meds will be tapered down a bit more today. pt expresses approval. again lauds pt for good behavior in the past 24H. pt acknowledges and indicates he understands that he had problematic behaviors prior and now he is actively working to correct his behavior. per staff, court scheduled for 06/18. slept most of day shift yesterday. ate 2 meals. denies AH. taking lots of naps. no inappropriate behaviors. when he gets sexually aroused in common areas he appropriately decamps to his room. Mental Status Exam Mental Status Exam Narrative: somnolent, lying in bed, cooperative with interview. general PMR. speech soft, slowed, slurred slightly. thoughts superficially linear and logical. affect b lunted. no SI/HI/AVH expressed. Diagnostics Vital Signs (24Hr): Vital Signs - 24 hr 06/13/21 18:00 06/14/21 10:27 Temperature 98.1 F 98.2 F Pulse Rate 66 103 H Respiratory Rate 16 16 Blood Pressure 105/66 140/83 H Pulse Oximetry 98 96 BMI result [place] 4 Body Mass Index [place] 4 22.3 [place] 4 [place] 4 Labs Results: 06/11/21 16:36 06/11/21 16:36 Imaging Radiology Impressions: ITS Impressions Head CT 06/10/21 17:52 IMPRESSION: No evidence of acute intracranial hemorrhage or edematous territorial infarction. Medications Medications Current Medications Acetaminophen (Acetaminophen 325 Mg Tablet) 650 mg PO Q6H PRN PRN Reason: Headache/Pain Mild Scale (1-3) Last Admin: 06/11/21 11:11 Dose: 650 mg Documented by: Al Hydroxide/Mg Hydroxide (Magnesium Hydrox/Alum Hydrox 30 Ml Oral.Susp) 30 ml PO Q6H PRN PRN Reason: Heartburn/Nausea Last Admin: 06/10/21 02:00 Dose: 30 ml Documented by: Benztropine Mesylate (Benztropine Mesylate 0.5 Mg Tablet) 0.5 mg PO TID PRN PRN Reason: Extrapyramidal Effects Last Admin: 06/07/21 20:56 Dose: 0.5 mg Documented by: Haloperidol (Haloperidol 5 Mg Tablet) 5 mg PO Q4H PRN PRN Reason: agitation Last Admin: 06/08/21 21:59 Dose: 5 mg Documented by: Haloperidol (Haloperidol 5 Mg Tablet) 10 mg PO BEDTIME [facility] Last Admin: 06/13/21 21:33 Dose: 10 mg Documented by: Haloperidol (Haloperidol 1 Mg Tablet) 2 mg PO BID@0830,1330 [facility] Last Admin: 06/14/21 13:12 Dose: 2 mg Documented by: Hydroxyzine HCl (Hydroxyzine Hcl 25 Mg Tablet) 25 mg PO BEDTIME PRN PRN Reason: Anxiety Last Admin: 06/11/21 20:48 Dose: 25 mg Documented by: Ibuprofen (Ibuprofen 600 Mg Tablet) 600 mg PO Q8H PRN PRN Reason: Pain, Mild (Pain Scale 1-3) Last Admin: 06/11/21 20:00 Dose: 600 mg Documented by: Lorazepam (Lorazepam 0.5 Mg Tablet) 0.5 mg PO BID [facility] Magnesium Hydroxide (Milk Of Magnesia 30 Ml Oral.Susp) 30 ml PO DAILY PRN PRN Reason: Constipation Mirtazapine (Mirtazapine 30 Mg Tablet) 30 mg PO BEDTIME [facility] Last Admin: 06/13/21 21:33 Dose: 30 mg Documented by: Pt Own Med (Vyvanse (40mg Capsules)) 1 each PO DAILY [facility] Last Admin: 06/07/21 08:52 Dose: 1 each Documented by: Trazodone HCl (Trazodone Hcl 50 Mg Tablet) 50 mg PO BEDTIME PRN PRN Reason: Insomnia Last Admin: 06/09/21 20:52 Dose: 50 mg Documented by: Allergies Allergies Allergy/AdvReac Type Severity Reaction Status Date / Time No Known Allergies Allergy Unverified 02/02/20 17:08 [No Known Allergies*] Assessment & Plan Assessment & Plan (1) Suicidal ideation: Status: Acute Code(s): R45.851 - Suicidal ideations Assessment and Plan: reportedly resolved (2) Homicidal ideations: Status: Acute Code(s): R45.850 - Homicidal ideations Assessment and Plan: resolved. acknowledged 06/06 he has an anger management problem, 06/07 said his anger has gone. (3) Psychosis: Status: Acute Code(s): F29 - Unspecified psychosis not due to a substance or known physiological condition Assessment and Plan: per collateral from mother, AH are new. 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 as of 06/14, denying AH. Plan continue remeron. hold vyvanse as of 06/08 to see if Sx change. PRNs of haldol and ativan. collateral from mother obtained. message left for ara, prescriber, to call back. 06/08: paced up p.r.n. needs, will increase schedule Haldol to 10 mg morning and afternoon 5 mg at bedtime and continue with 5 mg as needed. Will schedule Ativan 2 mg 4 times per day and 2 mg as needed. Maintain one-to-one observation 06/09: Does appear to be less psychotic, less intrusive and impulsive and irritable with scheduled Haldol and Ativan. May be having some sedation on same . Balancing mental state and sedation, would continue current regimen and continue to review this on a daily basis plus or minus adjust medications if there is ongoing sedation and mental state is improving. Remains on one-to-one observation and this should be continued to reviewed on a daily basis. 06/10: backing off haldol and ativan a bit today due to sedation. further labs to search for any as yet unidentified organic basis for this mental status change. per collateral from outpt provider, dr. bullock at [facility], this is very very far from pt's baseline. 06/11: will re-order labs as pt refused them. U/A and head CT WNL. filed for commitment today. 06/12: labs WNL. decreasing daytime ativan. 06/13: ativan decreased from 0.5 mg QID to 0.5 mg TID. seems to have more insight and better ability to control his behavior in the past 24H. 06/14: ativan decreased from 0.5 mg TID to 0.5 mg BID. haldol 5/5/10 decreased to haldol 2/2/10. no inappropriate behaviors the past 48 hours. T/C DC of 1:1. continue to taper sedating medications and observe for behavioral changes as he becomes less somnolent. seems to have more insight now. likely experienced a manic episode. I spent minutes with the patient and/or on the patient floor today, greater than?50% of which was spent counseling/coordinating care. Reason for contiued inpatient stay Substantial Risk for: harm to self, harm to others, inability to function and rapid decompensation
[2021-06-14] MEDS: Mirtazapine 30 MG TABLET PO (21:21)
[2021-06-14] MEDS: HaloperidoL 5 MG TABLET 10 MG PO (21:21)
[2021-06-14] MEDS: Ibuprofen 600 MG TABLET PO (21:27)
[2021-06-14 21:40] VITALS: BP 121/65; PULSE 72; RESP 16; TEMP 36.6; O2SAT 94
[2021-06-15] MEDS: LORazepam 0.5 MG TABLET PO ×2 (09:14→21:24)
[2021-06-15] MEDS: HaloperidoL 1 MG TABLET 2 MG PO ×2 (09:14→14:33)
[2021-06-15 09:30] VITALS: BP 125/65; PULSE 128; RESP 16; TEMP 36.7; O2SAT 98
--- NOTE | 2021-06-15 13:16 | P.PNPSI_ITS ---
Subjective Subjective Date of Service: 06/15/21 Reason For Visit: SI/HI Interim History: The nursing staff reported that he looks better, more alert, oriented and coherent. On interview, he stated that he is doing fine and he doesn't want any changes on his medications. Mental Status Exam Mental Status Exam Patient Appearance: Well Grooomed Patient Orientation: Person Level of Consciousness: Awake Patient Behavior: Cooperative Mood Description: Depressed Affect Description: Constricted Ability to Follow Directions: Fair Speech Pattern: Clear Hallucinations: None Delusions: Not Present Thought Process: Linear Thought Content: positive for [place] and positive for Poverty of Content Judgement: Fair Diagnostics Vital Signs (24Hr): Vital Signs - 24 hr 06/14/21 21:40 Temperature 98 F Pulse Rate 72 Respiratory Rate 16 Blood Pressure 121/65 Pulse Oximetry 94 BMI result [place] 4 Body Mass Index [place] 4 22.3 [place] 4 [place] 4 Labs Results: 06/11/21 16:36 06/11/21 16:36 Imaging Radiology Impressions: ITS Impressions Head CT 06/10/21 17:52 IMPRESSION: No evidence of acute intracranial hemorrhage or edematous territorial infarction. Medications Medications Current Medications Acetaminophen (Acetaminophen 325 Mg Tablet) 650 mg PO Q6H PRN PRN Reason: Headache/Pain Mild Scale (1-3) Last Admin: 06/11/21 11:11 Dose: 650 mg Documented by: Al Hydroxide/Mg Hydroxide (Magnesium Hydrox/Alum Hydrox 30 Ml Oral.Susp) 30 ml PO Q6H PRN PRN Reason: Heartburn/Nausea Last Admin: 06/10/21 02:00 Dose: 30 ml Documented by: Benztropine Mesylate (Benztropine Mesylate 0.5 Mg Tablet) 0.5 mg PO TID PRN PRN Reason: Extrapyramidal Effects Last Admin: 06/07/21 20:56 Dose: 0.5 mg Documented by: Haloperidol (Haloperidol 5 Mg Tablet) 5 mg PO Q4H PRN PRN Reason: agitation Last Admin: 06/08/21 21:59 Dose: 5 mg Documented by: Haloperidol (Haloperidol 5 Mg Tablet) 10 mg PO BEDTIME [facility] Last Admin: 06/14/21 21:21 Dose: 10 mg Documented by: Haloperidol (Haloperidol 1 Mg Tablet) 2 mg PO BID@0830,1330 [facility] Last Admin: 06/15/21 09:14 Dose: 2 mg Documented by: Hydroxyzine HCl (Hydroxyzine Hcl 25 Mg Tablet) 25 mg PO BEDTIME PRN PRN Reason: Anxiety Last Admin: 06/11/21 20:48 Dose: 25 mg Documented by: Ibuprofen (Ibuprofen 600 Mg Tablet) 600 mg PO Q8H PRN PRN Reason: Pain, Mild (Pain Scale 1-3) Last Admin: 06/14/21 21:27 Dose: 600 mg Documented by: Lorazepam (Lorazepam 0.5 Mg Tablet) 0.5 mg PO BID [facility] Last Admin: 06/15/21 09:14 Dose: 0.5 mg Documented by: Magnesium Hydroxide (Milk Of Magnesia 30 Ml Oral.Susp) 30 ml PO DAILY PRN PRN Reason: Constipation Mirtazapine (Mirtazapine 30 Mg Tablet) 30 mg PO BEDTIME [facility] Last Admin: 06/14/21 21:21 Dose: 30 mg Documented by: Pt Own Med (Vyvanse (40mg Capsules)) 1 each PO DAILY [facility] Last Admin: 06/07/21 08:52 Dose: 1 each Documented by: Trazodone HCl (Trazodone Hcl 50 Mg Tablet) 50 mg PO BEDTIME PRN PRN Reason: Insomnia Last Admin: 06/09/21 20:52 Dose: 50 mg Documented by: Allergies Allergies Allergy/AdvReac Type Severity Reaction Status Date / Time No Known Allergies Allergy Unverified 02/02/20 17:08 [No Known Allergies*] Assessment & Plan Assessment & Plan (1) Suicidal ideation: Status: Acute Code(s): R45.851 - Suicidal ideations Assessment and Plan: reportedly resolved (2) Homicidal ideations: Status: Acute Code(s): R45.850 - Homicidal ideations Assessment and Plan: resolved. acknowledged 06/06 he has an anger management problem, 06/07 said his anger has gone. (3) Psychosis: Status: Acute Code(s): F29 - Unspecified psychosis not due to a substance or known physiological condition Assessment and Plan: per collateral from mother, AH are new. 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 as of 06/14, denying AH. Plan continue remeron. hold vyvanse as of 06/08 to see if Sx change. PRNs of haldol and ativan. collateral from mother obtained. message left for ara, prescriber, to call back. 06/08: paced up p.r.n. needs, will increase schedule Haldol to 10 mg morning and afternoon 5 mg at bedtime and continue with 5 mg as needed. Will schedule Ativan 2 mg 4 times per day and 2 mg as needed. Maintain one-to-one observation 06/09: Does appear to be less psychotic, less intrusive and impulsive and irritable with scheduled Haldol and Ativan. May be having some sedation on same. Balancing mental state and sedation, would continue current regimen and continue to review this on a daily basis plus or minus adjust medications if there is ongoing sedation and mental state is improving. Remains on one-to-one observation and this should be continued to reviewed on a daily basis. 06/10: backing off haldol and ativan a bit today due to sedation. further labs to search for any as yet unidentified organic basis for this mental status change. per collateral from outpt provider, [place] bull[place] [facility] this is very ve ry far from pt's baseline. 06/11: will re-order labs as pt refused them. U/A and head CT WNL. filed for commitment today. 06/12: labs WNL. decreasing daytime ativan. 06/13: ativan decreased from 0.5 mg QID to 0.5 mg TID. seems to have more insight and better ability to control his behavior in the past 24H. 06/14: ativan decreased from 0.5 mg TID to 0.5 mg BID. haldol 5/5/10 decreased to haldol 2/2/10. no inappropriate behaviors the past 48 hours. T/C DC of 1:1. continue to taper sedating medications and observe for behavioral changes as he becomes less somnolent. seems to have more insight now. likely experienced a manic episode. 06/15 doing better, more awake and alert I spent minutes with the patient and/or on the patient floor today, greater than?50% of which was spent counseling/coordinating care. Reason for contiued inpatient stay Substantial Risk for: inability to function, rapid decompensation and med/psych decompensation
[2021-06-15] MEDS: Acetaminophen 325 MG TABLET 650 MG PO (17:13)
[2021-06-15 20:45] VITALS: BP 144/71; PULSE 96; RESP 18; TEMP 36.6; O2SAT 97
[2021-06-15] MEDS: Mirtazapine 30 MG TABLET PO (21:24)
[2021-06-15] MEDS: HaloperidoL 5 MG TABLET 10 MG PO (21:24)
[2021-06-16 10:00] VITALS: BP 120/72; PULSE 91; RESP 16; TEMP 36.6; O2SAT 98
[2021-06-16] MEDS: HaloperidoL 1 MG TABLET 2 MG PO ×2 (12:31→14:13)
[2021-06-16] MEDS: LORazepam 0.5 MG TABLET PO ×2 (12:31→22:05)
--- NOTE | 2021-06-16 14:01 | P.PNPSI_ITS ---
Subjective Subjective Date of Service: 06/16/21 Reason For Visit: SI/HI Interim History: The nursing staff reported that the patient is doing weill, we disucussed to change his observation to 15 min checks. On interview, he denied new symtoms, stable at thsi time Mental Status Exam Mental Status Exam Patient Appearance: Well Grooomed Patient Orientation: Person Level of Consciousness: Awake Patient Behavior: Cooperative Mood Description: Depressed Affect Description: Constricted Speech Pattern: Appropriate Delusions: Not Present Thought Process: Linear Judgement: Fair Diagnostics Vital Signs (24Hr): Vital Signs - 24 hr 06/15/21 20:45 06/16/21 10:00 Temperature 97.8 F 97.9 F Pulse Rate 96 91 Respiratory Rate 18 16 Blood Pressure 144/71 H 120/72 Pulse Oximetry 97 98 BMI result Verdana 4 Body Mass Index Verdana 4 22.3 Verdana 4 Verdana 4 Labs Results: 06/11/21 16:36 06/11/21 16:36 Imaging Radiology Impressions: ITS Impressions Head CT 06/10/21 17:52 IMPRESSION: No evidence of acute intracranial hemorrhage or edematous territorial infarction. Medications Medications Current Medications Acetaminophen (Acetaminophen 325 Mg Tablet) 650 mg PO Q6H PRN PRN Reason: Headache/Pain Mild Scale (1-3) Last Admin: 06/15/21 17:13 Dose: 650 mg Documented by: Al Hydroxide/Mg Hydroxide (Magnesium Hydrox/Alum Hydrox 30 Ml Oral.Susp) 30 ml PO Q6H PRN PRN Reason: Heartburn/Nausea Last Admin: 06/10/21 02:00 Dose: 30 ml Documented by: Benztropine Mesylate (Benztropine Mesylate 0.5 Mg Tablet) 0.5 mg PO TID PRN PRN Reason: Extrapyramidal Effects Last Admin: 06/07/21 20:56 Dose: 0.5 mg Documented by: Haloperidol (Haloperidol 5 Mg Tablet) 5 mg PO Q4H PRN PRN Reason: agitation Last Admin: 06/08/21 21:59 Dose: 5 mg Documented by: Haloperidol (Haloperidol 5 Mg Tablet) 10 mg PO BEDTIME WAYNE Last Admin: 06/15/21 21:24 Dose: 10 mg Documented by: Haloperidol (Haloperidol 1 Mg Tablet) 2 mg PO BID@0830,1330 WAYNE Last Admin: 06/16/21 12:31 Dose: 2 mg Documented by: Hydroxyzine HCl (Hydroxyzine Hcl 25 Mg Tablet) 25 mg PO BEDTIME PRN PRN Reason: Anxiety Last Admin: 06/11/21 20:48 Dose: 25 mg Documented by: Ibuprofen (Ibuprofen 600 Mg Tablet) 600 mg PO Q8H PRN PRN Reason: Pain, Mild (Pain Scale 1-3) Last Admin: 06/14/21 21:27 Dose: 600 mg Documented by: Lorazepam (Lorazepam 0.5 Mg Tablet) 0.5 mg PO BID [facility] Last Admin: 06/16/21 12:31 Dose: 0.5 mg Documented by: Magnesium Hydroxide (Milk Of Magnesia 30 Ml Oral.Susp) 30 ml PO DAILY PRN PRN Reason: Constipation Mirtazapine (Mirtazapine 30 Mg Tablet) 30 mg PO BEDTIME [facility] Last Admin: 06/15/21 21:24 Dose: 30 mg Documented by: Pt Own Med (Vyvanse (40mg Capsules)) 1 each PO DAILY [facility] Last Admin: 06/07/21 08:52 Dose: 1 each Documented by: Trazodone HCl (Trazodone Hcl 50 Mg Tablet) 50 mg PO BEDTIME PRN PRN Reason: Insomnia Last Admin: 06/09/21 20:52 Dose: 50 mg Documented by: Allergies Allergies Allergy/AdvReac Type Severity Reaction Status Date / Time No Known Allergies Allergy Unverified 02/02/20 17:08 [No Known Allergies*] Assessment & Plan Assessment & Plan (1) Suicidal ideation: Status: Acute Code(s): R45.851 - Suicidal ideations Assessment and Plan: reportedly resolved (2) Homicidal ideations: Status: Acute Code(s): R45.850 - Homicidal ideations Assessment and Plan: resolved. acknowledged 06/06 he has an anger management problem, 06/07 said his anger has gone. (3) Psychosis: Status: Acute Code(s): F29 - Unspecified psychosis not due to a substance or known physiological condition Assessment and Plan: per collateral from mother, AH are new. 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 as of 06/14, denying AH. Plan continue remeron. hold vyvanse as of 06/08 to see if Sx change. PRNs of haldol and ativan. collateral from mother obtained. message left for ara, prescriber, to call back. 06/08: paced up p.r.n. needs, will increase schedule Haldol to 10 mg morning and afternoon 5 mg at bedtime and continue with 5 mg as needed. Will schedule Ativan 2 mg 4 times per day and 2 mg as needed. Maintain one-to-one observation 06/09: Does appear to be less psychotic, less intrusive and impulsive and irritable with scheduled Haldol and Ativan. May be having some sedation on same . Balancing mental state and sedation, would continue current regimen and continue to review this on a daily basis plus or minus adjust medications if there is ongoing sedation and mental state is improving. Remains on one-to-one observation and this should be continued to reviewed on a daily basis. 06/10: backing off haldol and ativan a bit today due to sedation. further labs to search for any as yet unidentified organic basis for this mental status change. per collateral from outpt provider, dr. bullock at [facility] [place], this is very very far from pt's baseline. 06/11: will re-order labs as pt refused them. U/A and head CT WNL. filed for commitment today. 06/12: labs WNL. decreasing daytime ativan. 06/13: ativan decreased from 0.5 mg QID to 0.5 mg TID. seems to have more insight and better ability to control his behavior in the past 24H. 06/14: ativan decreased from 0.5 mg TID to 0.5 mg BID. haldol 5/5/10 decreased to haldol 2/2/10. no inappropriate behaviors the past 48 hours. T/C DC of 1:1. continue to taper sedating medications and observe for behavioral changes as he becomes less somnolent. seems to have more insight now. likely experienced a manic episode. 06/15 doing better, more awake and alert I spent minutes with the patient and/or on the patient floor today, greater than?50% of which was spent counseling/coordinating care. Reason for contiued inpatient stay Substantial Risk for: inability to function, rapid decompensation and med/psych decompensation
[2021-06-16 18:00] VITALS: BP 124/78; PULSE 88; RESP 18; TEMP 36.6; O2SAT 98
[2021-06-16] MEDS: HaloperidoL 5 MG TABLET 10 MG PO (22:05)
[2021-06-16] MEDS: Mirtazapine 30 MG TABLET PO (22:06)
[2021-06-17 08:00] VITALS: BP 134/75; PULSE 106; TEMP 36.3; O2SAT 98
[2021-06-17] MEDS: HaloperidoL 1 MG TABLET 2 MG PO (09:45)
[2021-06-17] MEDS: LORazepam 0.5 MG TABLET PO ×2 (09:45→22:04)
--- NOTE | 2021-06-17 15:11 | P.PNPSI_ITS ---
Subjective Subjective Date of Service: 06/17/21 Reason For Visit: SI/HI Interim History: pt reports he is feeling well, aware of his recent behaviors. insight that they were not appropriate. no questions or concerns today. informed of continued ativan and haldol tapers. per staff, feels safe. isolative. napping. pleasant, more polite. appears tired. Mental Status Exam Mental Status Exam Narrative: less somnolent, lying in bed, cooperative with interview. general PMR. speech soft, slowed. thoughts linear and logical. affect blunted. no SI/HI/AVH expressed. Diagnostics Vital Signs (24Hr): Vital Signs - 24 hr 06/16/21 18:00 06/17/21 08:00 Temperature 97.9 F 97.3 F Pulse Rate 88 106 H Respiratory Rate 18 Blood Pressure 124/78 134/75 Pulse Oximetry 98 98 BMI result Verdana 4 Body Mass Index Verdana 4 22.3 Verdana 4 Verdana 4 Labs Results: 06/11/21 16:36 06/11/21 16:36 Imaging Radiology Impressions: ITS Impressions Head CT 06/10/21 17:52 IMPRESSION: No evidence of acute intracranial hemorrhage or edematous territorial infarction. Medications Medications Current Medications Acetaminophen (Acetaminophen 325 Mg Tablet) 650 mg PO Q6H PRN PRN Reason: Headache/Pain Mild Scale (1-3) Last Admin: 06/15/21 17:13 Dose: 650 mg Documented by: Al Hydroxide/Mg Hydroxide (Magnesium Hydrox/Alum Hydrox 30 Ml Oral.Susp) 30 ml PO Q6H PRN PRN Reason: Heartburn/Nausea Last Admin: 06/10/21 02:00 Dose: 30 ml Documented by: Benztropine Mesylate (Benztropine Mesylate 0.5 Mg Tablet) 0.5 mg PO TID PRN PRN Reason: Extrapyramidal Effects Last Admin: 06/07/21 20:56 Dose: 0.5 mg Documented by: Haloperidol (Haloperidol 5 Mg Tablet) 5 mg PO Q4H PRN PRN Reason: agitation Last Admin: 06/08/21 21:59 Dose: 5 mg Documented by: Haloperidol (Haloperidol 5 Mg Tablet) 10 mg PO BEDTIME WAYNE Last Admin: 06/16/21 22:05 Dose: 10 mg Documented by: Hydroxyzine HCl (Hydroxyzine Hcl 25 Mg Tablet) 25 mg PO BEDTIME PRN PRN Reason: Anxiety Last Admin: 06/11/21 20:48 Dose: 25 mg Documented by: Ibuprofen (Ibuprofen 600 Mg Tablet) 600 mg PO Q8H PRN PRN Reason: Pain, Mild (Pain Scale 1-3) Last Admin: 06/14/21 21:27 Dose: 600 mg Documented by: Lorazepam (Lorazepam 0.5 Mg Tablet) 0.5 mg PO BEDTIME WAYNE Magnesium Hydroxide (Milk Of Magnesia 30 Ml Oral.Susp) 30 ml PO DAILY PRN PRN Reason: Constipation Mirtazapine (Mirtazapine 30 Mg Tablet) 30 mg PO BEDTIME WAYNE Last Admin: 06/16/21 22:06 Dose: 30 mg Documented by: Pt Own Med (Vyvanse (40mg Capsules)) 1 each PO DAILY [facility] Last Admin: 06/07/21 08:52 Dose: 1 each Documented by: Trazodone HCl (Trazodone Hcl 50 Mg Tablet) 50 mg PO BEDTIME PRN PRN Reason: Insomnia Last Admin: 06/09/21 20:52 Dose: 50 mg Documented by: Allergies Allergies Allergy/AdvReac Type Severity Reaction Status Date / Time No Known Allergies Allergy Unverified 02/02/20 17:08 [No Known Allergies*] Assessment & Plan Assessment & Plan (1) Suicidal ideation: Status: Acute Code(s): R45.851 - Suicidal ideations Assessment and Plan: reportedly resolved (2) Homicidal ideations: Status: Acute Code(s): R45.850 - Homicidal ideations Assessment and Plan: resolved. acknowledged 06/06 he has an anger management problem, 06/07 said his anger has gone. (3) Psychosis: Status: Acute Code(s): F29 - Unspecified psychosis not due to a substance or known physiological condition Assessment and Plan: per collateral from mother, AH are new. 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 as of 06/14, denying AH. Plan continue remeron. hold vyvanse as of 06/08 to see if Sx change. PRNs of haldol and ativan. collateral from mother obtained. message left for ara, prescriber, to call back. 06/08: paced up p.r.n. needs, will increase schedule Haldol to 10 mg morning and afternoon 5 mg at bedtime and continue with 5 mg as needed. Will schedule Ativan 2 mg 4 times per day and 2 mg as needed. Maintain one-to-one observation 06/09: Does appear to be less psychotic, less intrusive and impulsive and irritable with scheduled Haldol and Ativan. May be having some sedation on same. Balancing mental state and sedation, would continue current regimen and continue to review this on a daily basis plus or minus adjust medications if there is ongoing sedation and mental state is improving. Remains on one-to-one observation and this should be continued to reviewed on a daily basis. 06/10: backing off haldol and ativan a bit today due to sedation. further labs to search for any as yet unidentified organic basis for this mental status change. per collateral from outpt provider, dr. ubllock at [facility] [place], this is very very far from pt's baseline. 06/11: will re-order labs as pt refused them. U/A and head CT WNL. filed for commitment today. 06/12: labs WNL. decreasing daytime ativan. 06/13: ativan decreased from 0.5 mg QID to 0.5 mg TID. seems to have more i nsight and better ability to control his behavior in the past 24H. 06/14: ativan decreased from 0.5 mg TID to 0.5 mg BID. haldol 5//10 decreased to haldol 2/2/10. no inappropriate behaviors the past 48 hours. T/C DC of 1:1. continue to taper sedating medications and observe for behavioral changes as he becomes less somnolent. seems to have more insight now. likely experienced a manic episode. 06/15 doing better, more awake and alert 06/17: decrease ativan from 0.5 BID to 0.5 QHS. decrease haldol from 2/2/10 to 10 QHS. plan to decrease to 5 QHS tomorrow. plan for DC later this week. I spent minutes with the patient and/or on the patient floor today, great er than?50% of which was spent counseling/coordinating care. Reason for contiued inpatient stay Substantial Risk for: inability to function and rapid decompensation
[2021-06-17 18:00] VITALS: BP 130/72; PULSE 94; RESP 18; TEMP 36.4; O2SAT 97
[2021-06-17] MEDS: Mirtazapine 30 MG TABLET PO (22:04)
[2021-06-17] MEDS: HaloperidoL 5 MG TABLET 10 MG PO (22:04)
--- NOTE | 2021-06-18 11:07 | P.PNPSI_ITS ---
Subjective Subjective Date of Service: 06/18/21 Reason For Visit: SI/HI Interim History: pt seen in his room. he is awake, sitting on his bed. reports he is feeling fine. denies SI/HI/AVH. does recall having had VH. states he is sleeping well. informed pt that ativan will be DCed today and HS haldol reduced to 5 mg. plan is to discharge soon, also informed pt that a meeting of his providers and his mother will occur prior to his discharge but that we were planning for late this week. per staff, pleasant, cooperative, isolative, withdrawn, eating, med-compliant, slept through the night. Mental Status Exam Mental Status Exam Narrative: awake and alert, sitting on bed, cooperative with interview. general PMR. speech soft, less slowed. thoughts linear and logical. affect constricted. denies SI/HI/AVH. Diagnostics Vital Signs (24Hr): Vital Signs - 24 hr 06/17/21 18:00 Temperature 97.6 F Pulse Rate 94 Respiratory Rate 18 Blood Pressure 130/72 Pulse Oximetry 97 BMI result Verdana 4 Body Mass Index Verdana 4 22.3 Verdana 4 Verdana 4 Labs Results: 06/11/21 16:36 06/11/21 16:36 Imaging Radiology Impressions: ITS Impressions Head CT 06/10/21 17:52 IMPRESSION: No evidence of acute intracranial hemorrhage or edematous territorial infarction. Medications Medications Current Medications Acetaminophen (Acetaminophen 325 Mg Tablet) 650 mg PO Q6H PRN PRN Reason: Headache/Pain Mild Scale (1-3) Last Admin: 06/15/21 17:13 Dose: 650 mg Documented by: Al Hydroxide/Mg Hydroxide (Magnesium Hydrox/Alum Hydrox 30 Ml Oral.Susp) 30 ml PO Q6H PRN PRN Reason: Heartburn/Nausea Last Admin: 06/10/21 02:00 Dose: 30 ml Documented by: Benztropine Mesylate (Benztropine Mesylate 0.5 Mg Tablet) 0.5 mg PO TID PRN PRN Reason: Extrapyramidal Effects Last Admin: 06/07/21 20:56 Dose: 0.5 mg Documented by: Haloperidol (Haloperidol 5 Mg Tablet) 5 mg PO Q4H PRN PRN Reason: agitation Last Admin: 06/08/21 21:59 Dose: 5 mg Documented by: Haloperidol (Haloperidol 5 Mg Tablet) 5 mg PO BEDTIME WAYNE Hydroxyzine HCl (Hydroxyzine Hcl 25 Mg Tablet) 25 mg PO BEDTIME PRN PRN Reason: Anxiety Last Admin: 06/11/21 20:48 Dose: 25 mg Documented by: Ibuprofen (Ibuprofen 600 Mg Tablet) 600 mg PO Q8H PRN PRN Reason: Pain, Mild (Pain Scale 1-3) Last Admin: 06/14/21 21:27 Dose: 600 mg Documented by: Magnesium Hydroxide (Milk Of Magnesia 30 Ml Oral.Susp) 30 ml PO DAILY PRN PRN Reason: Constipation Mirtazapine (Mirtazapine 30 Mg Tablet) 30 mg PO BEDTIME WAYNE Last Admin: 06/17/21 22:04 Dose: 30 mg Documented by: Pt Own Med (Vyvanse (40mg Capsules)) 1 each PO DAILY WAYNE Last Admin: 06/07/21 08:52 Dose: 1 each Documented by: Trazodone HCl (Trazodone Hcl 50 Mg Tablet) 50 mg PO BEDTIME PRN PRN Reason: Insomnia Last Admin: 06/09/21 20:52 Dose: 50 mg Documented by: Allergies Allergies Allergy/AdvReac Type Severity Reaction Status Date / Time No Known Allergies Allergy Unverified 02/02/20 17:08 [No Known Allergies*] Assessment & Plan Assessment & Plan (1) Suicidal ideation: Status: Acute Code(s): R45.851 - Suicidal ideations Assessment and Plan: resolved (2) Homicidal ideations: Status: Acute Code(s): R45.850 - Homicidal ideations Assessment and Plan: resolved. acknowledged 06/06 he has an anger management problem, 06/07 said his anger has gone. (3) Psychosis: Status: Acute Code(s): F29 - Unspecified psychosis not due to a substance or known physiological condition Assessment and Plan: per collateral from mother, AH are new. 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 as of 06/14, denying AH. continues to deny AH as of 06/18. Plan continue remeron. hold vyvanse as of 06/08 to see if Sx change. PRNs of haldol and ativan. collateral from mother obtained. message left for ara, prescriber, to call back. 06/08: paced up p.r.n. needs, will increase schedule Haldol to 10 mg morning and afternoon 5 mg at bedtime and continue with 5 mg as needed. Will schedule Ativan 2 mg 4 times per day and 2 mg as needed. Maintain one-to-one observation 06/09: Does appear to be less psychotic, less intrusive and impulsive and irritable with scheduled Haldol and Ativan. May be having some sedation on same. Balancing mental state and sedation, would continue current regimen and continue to review this on a daily basis plus or minus adjust medications if there is ongoing sedation and mental state is improving. Remains on one-to-one observation and this should be continued to reviewed on a daily basis. 06/10: backing off haldol and ativan a bit today due to sedation. further labs to search for any as yet unidentified organic basis for this mental status change. per collateral from outpt provider, dr. bullock at [facility] [place], this is very very far from pt's baseline. 06/11: will re-order labs as pt refused them. U/A and head CT WNL. filed for commitment today. 06/12: labs WNL. decreasing daytime ativan. 06/13: ativan decreased from 0.5 mg QID to 0.5 mg TID. seems to have more insight and better ability to control his behavior in the past 24H. 06/14: ativan decreased from 0.5 mg TID to 0.5 mg BID. haldol 5/5/10 decreased to haldol 2/2/10. no inappropriate behaviors the past 48 hours. T/C DC of 1:1. continue to taper sedating medications and observe for behavioral changes as he becomes less somnolent. seems to have more insight now. likely experienced a manic episode. 06/15 doing better, more awake and alert 06/17: decrease ativan from 0.5 BID to 0.5 QHS. decrease haldol from 2/2/10 to 10 QHS. plan to decrease to 5 QHS tomorrow. plan for DC later this week. 06/18: ativan DCed, haldol decreased from 10 QHS to 5 QHS. still holding vyvanse for now. DC late this week. I spent minutes with the patient and/or on the patient floor today, greater than?50% of which was spent counseling/coordinating care. Reason for contiued inpatient stay Substantial Risk for: inability to function and rapid decompensation
[2021-06-18 18:00] VITALS: BP 120/68; PULSE 80; RESP 18; TEMP 36.8; O2SAT 97
[2021-06-18] MEDS: Mirtazapine 30 MG TABLET PO (21:30)
[2021-06-18] MEDS: HaloperidoL 5 MG TABLET PO (21:30)
[2021-06-19 09:24] VITALS: BP 107/70; PULSE 109; RESP 16; TEMP 36.9; O2SAT 97
[2021-06-19] MEDS: Ibuprofen 600 MG TABLET PO (20:33)
[2021-06-19] MEDS: HaloperidoL 5 MG TABLET PO (20:33)
[2021-06-19] MEDS: Mirtazapine 30 MG TABLET PO (20:34)
[2021-06-19 20:39] VITALS: BP 140/83; PULSE 100; RESP 18; TEMP 36.6; O2SAT 99
[2021-06-19] MEDS: Acetaminophen 325 MG TABLET 650 MG PO (21:27)
--- NOTE | 2021-06-19 22:28 | P.PNPSI_ITS ---
Subjective Subjective Date of Service: 06/19/21 Reason For Visit: SI/HI Interim History: pt's presentation as per yesterday. today pt was sitting on his bed, dressed for the day, clearly had been awake for some time, however. denies any symptoms, feeling himself. planning to discharge thursday after meeting with treaters. feeling restarting stimulant is necessary for him, so we restart it today to have a couple days of it prior to discharge. per staff, active, appropriate in groups. sleeping, isolating. slept all NOC. provider mtg thursday at 11. Mental Status Exam Mental Status Exam Narrative: awake and alert, sitting on bed, cooperative with interview. general PMR. speech soft, less slowed. thoughts linear and logical. affect constricted. denies SI/HI/AVH. Diagnostics Vital Signs (24Hr): Vital Signs - 24 hr 06/19/21 09:24 06/19/21 20:39 Temperature 98.4 F 98 F Pulse Rate 109 H 100 Respiratory Rate 16 18 Blood Pressure 107/70 140/83 H Pulse Oximetry 97 99 BMI result Verdana 4 Body Mass Index Verdana 4 22.3 Verdana 4 Verdana 4 Labs Results: 06/11/21 16:36 06/11/21 16:36 Imaging Radiology Impressions: ITS Impressions Head CT 06/10/21 17:52 IMPRESSION: No evidence of acute intracranial hemorrhage or edematous territorial infarction. Medications Medications Current Medications Acetaminophen (Acetaminophen 325 Mg Tablet) 650 mg PO Q6H PRN PRN Reason: Headache/Pain Mild Scale (1-3) Last Admin: 06/19/21 21:27 Dose: 650 mg Documented by: Al Hydroxide/Mg Hydroxide (Magnesium Hydrox/Alum Hydrox 30 Ml Oral.Susp) 30 ml PO Q6H PRN PRN Reason: Heartburn/Nausea Last Admin: 06/10/21 02:00 Dose: 30 ml Documented by: Benztropine Mesylate (Benztropine Mesylate 0.5 Mg Tablet) 0.5 mg PO TID PRN PRN Reason: Extrapyramidal Effects Last Admin: 06/07/21 20:56 Dose: 0.5 mg Documented by: Haloperidol (Haloperidol 5 Mg Tablet) 5 mg PO Q4H PRN PRN Reason: agitation Last Admin: 06/08/21 21:59 Dose: 5 mg Documented by: Haloperidol (Haloperidol 5 Mg Tablet) 5 mg PO BEDTIME WAYNE Last Admin: 06/19/21 20:33 Dose: 5 mg Documented by: Hydroxyzine HCl (Hydroxyzine Hcl 25 Mg Tablet) 25 mg PO BEDTIME PRN PRN Reason: Anxiety Last Admin: 06/11/21 20:48 Dose: 25 mg Documented by: Ibuprofen (Ibuprofen 600 Mg Tablet) 600 mg PO Q8H PRN PRN Reason: Pain, Mild (Pain Scale 1-3) Last Admin: 06/19/21 20:33 Dose: 600 mg Documented by: Magnesium Hydroxide (Milk Of Magnesia 30 Ml Oral.Susp) 30 ml PO DAILY PRN PRN Reason: Constipation Mirtazapine (Mirtazapine 30 Mg Tablet) 30 mg PO BEDTIME WAYNE Last Admin: 06/19/21 20:34 Dose: 30 mg Documented by: Pt Own Med (Vyvanse (40mg Capsules)) 1 each PO DAILY [facility] Last Admin: 06/19/21 12:57 Dose: 1 each Documented by: Trazodone HCl (Trazodone Hcl 50 Mg Tablet) 50 mg PO BEDTIME PRN PRN Reason: Insomnia Last Admin: 06/09/21 20:52 Dose: 50 mg Documented by: Allergies Allergies Allergy/AdvReac Type Severity Reaction Status Date / Time No Known Allergies Allergy Unverified 02/02/20 17:08 [No Known Allergies*] Assessment & Plan Assessment & Plan (1) Suicidal ideation: Status: Acute Code(s): R45.851 - Suicidal ideations Assessment and Plan: resolved (2) Homicidal ideations: Status: Acute Code(s): R45.850 - Homicidal ideations Assessment and Plan: resolved. acknowledged 06/06 he has an anger management problem, 06/07 said his anger has gone. (3) Psychosis: Status: Acute Code(s): F29 - Unspecified psychosis not due to a substance or known physiological condition Assessment and Plan: per collateral from mother, AH are new. as of 06/14, denying AH. continues to deny AH as of 06/18. Plan continue remeron. hold vyvanse as of 06/08 to see if Sx change. PRNs of haldol and ativan. collateral from mother obtained. message left for ara, prescriber, to call back. 06/08: paced up p.r.n. needs, will increase schedule Haldol to 10 mg morning and afternoon 5 mg at bedtime and continue with 5 mg as needed. Will schedule Ativan 2 mg 4 times per day and 2 mg as needed. Maintain one-to-one observation 06/09: Does appear to be less psychotic, less intrusive and impulsive and i rritable with scheduled Haldol and Ativan. May be having some sedation on same. Balancing mental state and sedation, would continue current regimen and continue to review this on a daily basis plus or minus adjust medications if there is ongoing sedation and mental state is improving. Remains on one-to-one observation and this should be continued to reviewed on a daily basis. 06/10: backing off haldol and ativan a bit today due to sedation. further labs to search for any as yet unidentified organic basis for this mental status change. per collateral from outpt provider, dr. bullock at [facility] [place], this is very very far from pt's baseline. 06/11: will re-order labs as pt refused them. U/A and head CT WNL. filed for commitment today. 06/12: labs WNL. decreasing daytime ativan. 06/13: ativan decreased from 0.5 mg QID to 0.5 mg TID. seems to have more insight and better ability to control his behavior in the past 24H. 06/14: ativan decreased from 0.5 mg TID to 0.5 mg BID. haldol 5/5/10 decreased to haldol 2/2/10. no inappropriate behaviors the past 48 hours. T/C DC of 1:1. continue to taper sedating medications and observe for behavioral changes as he becomes less somnolent. seems to have more insight now. likely experienced a manic episode. 06/15 doing better, more awake and alert 06/17: decrease ativan from 0.5 BID to 0.5 QHS. decrease haldol from 2/2/10 to 10 QHS. plan to decrease to 5 QHS tomorrow. plan for DC later this week. 06/18: ativan DCed, haldol decreased from 10 QHS to 5 QHS. still holding vyvanse for now. DC late this week. 06/19: vyvanse 40 mg daily restarted today. discharge 06/21. I spent minutes with the patient and/or on the patient floor today, greater than?50% of which was spent counseling/coordinating care. Reason for contiued inpatient stay Substantial Risk for: harm to self, harm to others, inability to function and rapid decompensation
[2021-06-20 07:00] VITALS: BMI 21.2
[2021-06-20 08:30] VITALS: BP 126/71; PULSE 138; RESP 16; TEMP 36.8; O2SAT 97
--- NOTE | 2021-06-20 14:27 | P.PNPSI_ITS ---
Subjective Subjective Date of Service: 06/20/21 Reason For Visit: SI/HI Interim History: pt found lying in bed saying he has an upset stomach. denied any problematic side effects from restarting the stimulant yesterday other than perhaps some anxiety. felt it was minor and manageable. otherwise MSE unchanged. planning to discharge tomorrow. says he is getting on fine with his mother on the phone. per staff, isolative. doing arts. pleasant and appropriate. denies dep/anx/SI/HI/AVH. socializing. slept well. Mental Status Exam Mental Status Exam Narrative: awake and alert, lying in bed, cooperative with interview. general PMR. speech soft, less slowed. thoughts linear and logical. affect constricted. denies AVH. Diagnostics Vital Signs (24Hr): Vital Signs - 24 hr 06/19/21 20:39 06/20/21 08:30 Temperature 98 F 98.3 F Pulse Rate 100 138 H Respiratory Rate 18 16 Blood Pressure 140/83 H 126/71 Pulse Oximetry 99 97 BMI result Verdana 4 Body Mass Index Verdana 4 21.2 Verdana 4 Verdana 4 Labs Results: 06/11/21 16:36 06/11/21 16:36 Imaging Radiology Impressions: ITS Impressions Head CT 06/10/21 17:52 IMPRESSION: No evidence of acute intracranial hemorrhage or edematous territorial infarction. Medications Medications Current Medications Acetaminophen (Acetaminophen 325 Mg Tablet) 650 mg PO Q6H PRN PRN Reason: Headache/Pain Mild Scale (1-3) Last Admin: 06/19/21 21:27 Dose: 650 mg Documented by: Al Hydroxide/Mg Hydroxide (Magnesium Hydrox/Alum Hydrox 30 Ml Oral.Susp) 30 ml PO Q6H PRN PRN Reason: Heartburn/Nausea Last Admin: 06/10/21 02:00 Dose: 30 ml Documented by: Benztropine Mesylate (Benztropine Mesylate 0.5 Mg Tablet) 0.5 mg PO TID PRN PRN Reason: Extrapyramidal Effects Last Admin: 06/07/21 20:56 Dose: 0.5 mg Documented by: Haloperidol (Haloperidol 5 Mg Tablet) 5 mg PO Q4H PRN PRN Reason: agitation Last Admin: 06/08/21 21:59 Dose: 5 mg Documented by: Haloperidol (Haloperidol 5 Mg Tablet) 5 mg PO BEDTIME WAYNE Last Admin: 06/19/21 20:33 Dose: 5 mg Documented by: Hydroxyzine HCl (Hydroxyzine Hcl 25 Mg Tablet) 25 mg PO BEDTIME PRN PRN Reason: Anxiety Last Admin: 06/11/21 20:48 Dose: 25 mg Documented by: Ibuprofen (Ibuprofen 600 Mg Tablet) 600 mg PO Q8H PRN PRN Reason: Pain, Mild (Pain Scale 1-3) Last Admin: 06/19/21 20:33 Dose: 600 mg Documented by: Magnesium Hydroxide (Milk Of Magnesia 30 Ml Oral.Susp) 30 ml PO DAILY PRN PRN Reason: Constipation Mirtazapine (Mirtazapine 30 Mg Tablet) 30 mg PO BEDTIME [facility] Last Admin: 06/19/21 20:34 Dose: 30 mg Documented by: Pt Own Med (Vyvanse (40mg Capsules)) 1 each PO DAILY [facility] Last Admin: 06/20/21 09:38 Dose: 1 each Documented by: Trazodone HCl (Trazodone Hcl 50 Mg Tablet) 50 mg PO BEDTIME PRN PRN Reason: Insomnia Last Admin: 06/09/21 20:52 Dose: 50 mg Documented by: Allergies Allergies Allergy/AdvReac Type Severity Reaction Status Date / Time No Known Allergies Allergy Unverified 02/02/20 17:08 [No Known Allergies*] Assessment & Plan Assessment & Plan (1) Suicidal ideation: Status: Acute Code(s): R45.851 - Suicidal ideations Assessment and Plan: resolved (2) Homicidal ideations: Status: Acute Code(s): R45.850 - Homicidal ideations Assessment and Plan: resolved. acknowledged 06/06 he has an anger management problem, 06/07 said his anger has gone. (3) Psychosis: Status: Acute Code(s): F29 - Unspecified psychosis not due to a substance or known physiological condition Assessment and Plan: per collateral from mother, AH are new. as of 06/14, denying AH. continues to deny AH as of 06/18. Plan continue remeron. hold vyvanse as of 06/08 to see if Sx change. PRNs of haldol and ativan. collateral from mother obtained. message left for ara, prescriber, to call back. 06/08: paced up p.r.n. needs, will increase schedule Haldol to 10 mg morning and afternoon 5 mg at bedtime and continue with 5 mg as needed. Will schedule A tivan 2 mg 4 times per day and 2 mg as needed. Maintain one-to-one observation 06/09: Does appear to be less psychotic, less intrusive and impulsive and irritable with scheduled Haldol and Ativan. May be having some sedation on same. Balancing mental state and sedation, would continue current regimen and continue to review this on a daily basis plus or minus adjust medications if there is ongoing sedation and mental state is improving. Remains on one-to-one observation and this should be continued to reviewed on a daily basis. 06/10: backing off haldol and ativan a bit today due to sedation. further labs to search for any as yet unidentified organic basis for this mental status change. per collateral from outpt provider, dr. bullock at [facility], this is very very far from pt's baseline. 06/11: will re-order labs as pt refused them. U/A and head CT WNL. filed for commitment today. 06/12: labs WNL. decreasing daytime ativan. 06/13: ativan decreased from 0.5 mg QID to 0.5 mg TID. seems to have more insight and better ability to control his behavior in the past 24H. 06/14: ativan decreased from 0.5 mg TID to 0.5 mg BID. haldol 5/5/10 decreased to haldol 2/2/10. no inappropriate behaviors the past 48 hours. T/C DC of 1:1. continue to taper sedating medications and observe for behavioral changes as he becomes less somnolent. seems to have more insight now. likely experienced a manic episode. 06/15 doing better, more awake and alert 06/17: decrease ativan from 0.5 BID to 0.5 QHS. decrease haldol from 2/2/10 to 10 QHS. plan to decrease to 5 QHS tomorrow. plan for DC later this week. 06/18: ativan DCed, haldol decreased from 10 QHS to 5 QHS. still holding vyvanse for now. DC late this week. 06/19: vyvanse 40 mg daily restarted today. discharge 06/21. 06/20: stable. discharge tomorrow. I spent minutes with the patient and/or on the patient floor today, greater than?50% of which was spent counseling/coordinating care. Reason for contiued inpatient stay Substantial Risk for: stable for discharge
[2021-06-20 18:00] VITALS: BP 125/74; PULSE 95; RESP 16; TEMP 36.4; O2SAT 97
[2021-06-20] MEDS: Mirtazapine 30 MG TABLET PO (22:37)
[2021-06-20] MEDS: HaloperidoL 5 MG TABLET PO (22:37)
[2021-06-21 08:45] VITALS: BP 112/65; PULSE 116; RESP 16; TEMP 36.9; O2SAT 98
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
--- NOTE | 2021-06-21 13:46 | PC.NURSE ---
PT ready and aware of discharge. Pt with bright affect and is future focused. Pt denies SI/HI, denies depression. Discharge instructions discussed, all questions answered. Pt aware of all follow up appointments. Belongings returned. Pt ambulated off unit with steady gait.
== END 2021-06-21 13:47 | disposition home or self-care (01) | DRG 885 ==
LOC: HO.ED 20:08 → HO.PADLT16 06-05 15:41
PROVIDERS: Physician Assistant; Physician Assistant Medical; Psychiatry & Neurology Psychiatry; Admitting Provider Psychiatry & Neurology Psychiatry; Emergency Provider Internal Medicine; PCP Pediatrics; Visit Provider Psychiatry & Neurology Psychiatry
DX: F29 Unspecified psychosis not due to a substance or known physiological condition (principal); R45.851 Suicidal ideations; R45.850 Homicidal ideations; Z20.822 Contact with and (suspected) exposure to COVID-19; Z79.899 Other long term (current) drug therapy
CPT/HCPCS: 36415; 70450; 80048; 80076; 80307; 81003; 82077; 82607; 82746; 83735; 84100; 84443; 85025; 87635; 96372; 99285; J1200; J2060; Q0163

== ENCOUNTER 2022-10-09 07:00 | Outpatient (REF) | payer OTHER, SELFPAY ==
[2022-10-09 07:18] LABS: MANUAL DIFF FLAG NO
[2022-10-09 07:55] LABS: Basophils Absolute Auto 0.1 X10*3/uL (0.0-0.2); Eosinophils Absolute Auto 0.1 X10*3/uL (0.0-0.4); Eosinophils Percent Auto 1.3 % (0-4); Hematocrit 47.9 % (42.0-52.0); Hemoglobin 16.6 g/dl (14.0-18.0); Imm Gran Abs Auto 0.02 X10*3/uL (0.00-0.03); Imm Gran Pct Auto 0.3 % (0.0-0.4); Lymphocytes Absolute Auto 1.7 X10*3/uL (1.2-4.9); Lymphocytes Percent Auto 27.6 % (20-40); Mean Corpuscular HGB Conc 34.7 g/dl (31.0-36.0); Mean Corpuscular Hemoglobin 31.4 pg (27.0-33.0); Mean Corpuscular Volume 90.7 fL (80.0-98.0); Mean Platelet Volume 10.7 fL (9.4-12.4); Monocytes Absolute Auto 0.7 X10*3/uL (0.1-1.2); Monocytes Percent Auto 10.6 % (2-11); Neutrophils Absolute Auto 3.6 x10*3/uL (2.0-8.3); Neutrophils Percent Auto 59.2 % (45-73); Platelet Count 231 X10*3/uL (160-400); Red Blood Count 5.28 X10*6/uL (4.60-5.80); Red Cell Distribution Width 12.8 % (11.0-16.0); White Blood Count 6.1 X10*3/uL (4.8-10.8)
[2022-10-09 08:28] LABS: Valproate 83.5 mcg/mL (50.0-100.0)
[2022-10-09 08:32] LABS: Alanine Aminotransferase 16 U/L (0-40); Albumin Level 4.2 g/dL (3.5-5.0); Alkaline Phosphatase 70 U/L (39-117); Anion Gap 14 (12-20); Aspartate Amino Transferase 15 U/L (5-37); Bilirubin Total 0.4 mg/dL (0.0-1.0); Blood Urea Nitrogen 14 mg/dL (9-16); Calcium 9.9 mg/dL (8.4-10.2); Carbon Dioxide 27 mmol/L (22-29); Chloride 104 mmol/L (96-108); Estimated Glomerular Filt Rate > 60; Glucose Random 103 mg/dL (60-115); Potassium 4.1 mmol/L (3.3-5.1); Sodium 141 mmol/L (135-145); Total Protein 7.2 g/dL (6.5-8.0)
== END 2022-10-09 07:01 | disposition home or self-care (01) ==
LOC: HO.LAB 07:00
PROVIDERS: PCP Physician Assistant; Visit Provider Registered Nurse
DX: Z79.899 Other long term (current) drug therapy (principal)
CPT/HCPCS: 36415; 80053; 80164; 85025

== ENCOUNTER 2023-03-07 09:21 | Outpatient (REF) | payer OTHER, SELFPAY ==
[2023-03-07 10:37] LABS: Estimated Average Glucose 180 mg/dL; Hemoglobin A1c % 7.9 % (<6.0)
[2023-03-07 11:02] LABS: Rheumatoid Factor < 13.0 IU/mL (<15.0)
[2023-03-10 15:44] LABS: Anti Nuclear Antibody Screen NEGATIVE (NEGATIVE)
== END 2023-03-07 09:22 | disposition home or self-care (01) ==
LOC: HO.LAB 09:21
PROVIDERS: PCP Physician Assistant; Visit Provider Physician Assistant
DX: E11.9 Type 2 diabetes mellitus without complications (principal); Z84.0 Family history of diseases of the skin and subcutaneous tissue
CPT/HCPCS: 36415; 83036; 86038; 86431

== ENCOUNTER 2023-06-13 08:58 | Outpatient (REF) | payer OTHER, MEDICAID, SELFPAY ==
[2023-06-13 10:50] LABS: Estimated Average Glucose 183 mg/dL
[2023-06-13 11:28] LABS: Anion Gap 16 (12-20); Blood Urea Nitrogen 14 mg/dL (9-16); Carbon Dioxide 25 mmol/L (22-29); Chloride 102 mmol/L (96-108); Estimated Glomerular Filt Rate > 60; Glucose Random 122 mg/dL (60-115); Sodium 139 mmol/L (135-145)
[2023-06-13 11:40] LABS: Creatinine Urine 235.77 mg/dL; Microalbum/Creatinine Ratio Ur 39.4 ug/mg cr (<30)
== END 2023-06-13 08:59 | disposition home or self-care (01) ==
LOC: HO.LAB 08:58
PROVIDERS: PCP Physician Assistant; Visit Provider Physician Assistant
DX: E11.29 Type 2 diabetes mellitus with other diabetic kidney complication (principal)
CPT/HCPCS: 36415; 80048; 82043; 82570; 83036

== ENCOUNTER 2024-01-02 08:34 | Outpatient (REF) | payer MEDICARE, MEDICAID, SELFPAY ==
[2024-01-02 09:55] LABS: Estimated Average Glucose 137 mg/dL; Hemoglobin A1c % 6.4 % (<6.0)
[2024-01-02 10:33] LABS: Anion Gap 14 (12-20); Blood Urea Nitrogen 15 mg/dL (9-16); Calcium 10.2 mg/dL (8.4-10.2); Carbon Dioxide 26 mmol/L (22-29); Chloride 103 mmol/L (96-108); Estimated Glomerular Filt Rate > 60; Glucose Random 147 mg/dL (60-115); Potassium 4.4 mmol/L (3.3-5.1); Sodium 139 mmol/L (135-145)
[2024-01-02 10:33] LABS: Creatinine Urine 93.81 mg/dL; Microalbum/Creatinine Ratio Ur 55.4 ug/mg cr (<30)
== END 2024-01-02 08:35 | disposition home or self-care (01) ==
LOC: HO.LAB 08:34
PROVIDERS: PCP Physician Assistant; Visit Provider Physician Assistant
DX: E11.65 Type 2 diabetes mellitus with hyperglycemia (principal); E11.29 Type 2 diabetes mellitus with other diabetic kidney complication
CPT/HCPCS: 36415; 80048; 82043; 82570; 83036

== ENCOUNTER 2024-02-22 10:45 | Outpatient (AMB) | payer MEDICARE, MEDICAID, SELFPAY ==
--- NOTE | 2024-02-22 10:46 | AM.OFFWIN_ITS ---
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 Patient Tobacco Use Status: Never used Tobacco Accompanied by: Mother Allergies No Known Allergies [No Known Allergies*] Allergy (Unverified 02/22/24 10:49) Do you need a note to return to daycare/school/sports/work: No HPI HPI Comments History of Present Illness Details Patient is a 23-year-old male here with his mom complaining of a cough and congestion for the last 6 weeks. He states it has evolved over the last 6 weeks but he still has this lingering cough and congestion. He denies any fevers, sinus pain, ear pain, headaches. He does not like to take any medications so he has not been using any [id number] medication to manage his symptoms. He did not test for COVID at home. [facility] Social History Household Members Other:: Mom, aunt, and her cousin. Housing: Apartment Do you presently have visiting nurse or other home services: No Patient Tobacco Use Status: Never used Tobacco e-Cigarette/Vaping Use: Never Used Second Hand Smoke Exposure: No service: No Review of Systems Const All systems reviewed & are unremarkable except as noted in HPI and below Physical Exam Vital Signs: Last Vital Signs Temp 97.5 F 02/22/24 10:48 Pulse 83 02/22/24 10:48 BP 110/70 02/22/24 10:48 Pulse Ox 98 02/22/24 10:48 Oxygen Delivery Method Room Air 02/22/24 10:48 BMI result Body Mass Index 29.5 Const General: cooperative, healthy appearing, comfortable and no acute distress Orientation/consciousness: patient oriented x3 Limitations: no limitations HEENT Head: Yes normal to inspection Ears: hearing grossly normal bilaterally, external ears normal and TM's normal bilaterally General nose exam: Normal external nose present, Normal nares present and No nasal discharge present Face and sinus: Yes normal facial exam and Yes sinuses nontender Mouth: Normal oral and palatal mucosa present and moist mucous membranes Throat: Yes tonsils normal, Yes uvula midline and Yes posterior oropharynx abnormal (Erythema) Eyes General: appearance normal, both eyes and all related structures Neck Neck: Yes normal visual inspection Resp Effort & Inspection: normal respiratory effort, able to speak in complete sentences, no respiratory distress, not tachypneic, no tripod positioning and no use of accessory muscles Auscultation: clear to auscultation bilaterally Cardio Rate: regular rate Rhythm: regular rhythm Heart sounds: normal S1 and S2 Skin General skin exam: no rashes or lesions noted Neuro General: patient oriented x3 Extrem General: Yes normal to inspection and Yes no clubbing, cyanosis or edema Assessment & Plan Assessment & Plan (1) Atypical pneumonia: Code(s): J18.9 - Pneumonia, unspecified organism Plan: We will send a Z-Juanpablo for atypical pneumonia. Plan See above Medications: New azithromycin For 250 mg dose pack: take 500 mg today (day 1), then 250 mg for 4 days (days 2-5) PO 6 tabs 0RF Discontinued haloperidol Discontinued Reason: Patient no longer taking 5 mg PO BEDTIME 30 days 30 tabs 1RF Coding Level of Care Code New Pt Level 3 (21515) Diagnoses Atypical pneumonia J18.9
[2024-02-22 10:48] VITALS: BP 110/70; PULSE 83; TEMP 36.4; O2SAT 98; BMI 29.5
== END 2024-02-22 12:45 | disposition home or self-care (01) ==
PROVIDERS: PCP Physician Assistant; Visit Provider Physician Assistant
DX: J18.9 Pneumonia, unspecified organism (principal)

== ENCOUNTER → 2024-02-22 10:45 | Outpatient (BNVA) | payer MEDICARE, MEDICAID, SELFPAY | PROVIDERS: PCP Physician Assistant; Visit Provider Physician Assistant | DX: J18.9 Pneumonia, unspecified organism (principal) | CPT/HCPCS: 99202 ==

== ENCOUNTER 2024-07-16 09:33 | Outpatient (REF) | payer MEDICARE, MEDICAID, SELFPAY ==
[2024-07-16 11:15] LABS: Estimated Average Glucose 123 mg/dL; Hemoglobin A1C 172.9836 umol/L; Hemoglobin A1c % 5.9 % (<6.0); Total Hemoglobin (HGBA1C) 4199.0991 umol/L
== END 2024-07-16 09:34 | disposition home or self-care (01) ==
LOC: HO.LABR 09:33
PROVIDERS: PCP Physician Assistant; Visit Provider Physician Assistant
DX: E11.9 Type 2 diabetes mellitus without complications (principal)
CPT/HCPCS: 36415; 83036

== ENCOUNTER 2024-12-31 09:23 | Outpatient (REF) | payer MEDICARE, MEDICAID, SELFPAY ==
--- OUTSIDE RECORDS SUMMARY | 2024-12-31 09:27 | XMS_ITS | Clinical Summary ---
Author Organization [facility] Address [address] [place] [id number] Phone Care Team Providers Care Ballistics Tester Name Role Phone Kena Hanks MD Primary Care Provider [phone] Social History Tobacco Use Types Packs/Day Years Used Date Smoking Tobacco: Never Assessed Education Answer Date Recorded Are you interested in more education? Not on ashlyn e 09/13/2022 Are you concerned about learning? Not on file 09/13/2022 No 09/13/2022 No 09/13/2022 Digital Access Answer Date Recorded No 10/14/2022 No 10/14/2022 Reliable internet access at home? Not on file 10/14/2022 Device with a working camera? Not on file Sex and Gender Information Value Date Recorded Sex Assigned at Not on file Legal Sex Male 11:35 AM EST Gender Identity Not on file Sexual Orientation Not on file Plan of Treatment Health Maintenance Due Date Last Done Comments Adult Td,Tdap Booster 2001 DEPRESSION SCREENING 2013 SMOKING Hx and SMOKELESS TOB ACCO SCREENING 2014 HPV VACCINES (1 - Male 3-dos e series) 2016 MENINGOCOCCAL VACCINES (B) ( 1 of 2 - Standard) 2017 HEPATITIS C SCREENING 2019 HIV ONE-TIME SCREENING (18-6 5 YEARS) 2019 COVID-19 VACCINE ( - 2023-2 5 season) 2024 HEPATITIS A VACCINES Aged Out No long er eligible based on patient's age to complete this topic HIB VACCINES Aged Out No longer eligi ble based on patient's age to complete this topic MENINGOCOCCAL VACCINES (ACWY) Aged Out No longer eligible based on patient's age to complete this topic PNEUMOCOCCAL VACCINES (0-49 years) Aged Out No longer eligible based on patient's age to complete this topic Medical Devices Not on file Insurance [facility] [place] [place] [address] ANGELA LOPEZ [facility] [address] [place] [address]HE[place] [facility] [place] [facility] [address] [place] [address]HE[facility] [place] [facility] [place] [facility] [place] [address] [place] [address] [facility] POS EPO [facility] Care Teams Ballistics Tester Relationship Specialty Start Date End Date Kena Hanks MD [address] [place] [address] ANGELA Maldonado [address] PCP - General Pediatrics 06/03/21 Additional Source Comments The information contained in this document represents components of the legal health record. It is not the complete legal health record.[facility]
[2024-12-31 11:23] LABS: Hemoglobin A1C 203.7630 umol/L; Total Hemoglobin (HGBA1C) 4240.2461 umol/L
[2024-12-31 11:26] LABS: Alanine Aminotransferase 54 U/L (0-40); Albumin Level 4.5 g/dL (3.5-5.0); Alkaline Phosphatase 89 U/L (39-117); Anion Gap 18 (12-20); Aspartate Amino Transferase 31 U/L (5-37); Blood Urea Nitrogen 7 mg/dL (9-16); Calcium 9.3 mg/dL (8.4-10.2); Carbon Dioxide 28 mmol/L (22-29); Chloride 99 mmol/L (96-108); Cholesterol 168 mg/dL (<200); Estimated Glomerular Filt Rate > 60; HDL Cholesterol 28 mg/dL (>40); Potassium 4.0 mmol/L (3.3-5.1); Sodium 141 mmol/L (135-145); Total Protein 7.1 g/dL (6.5-8.0); Triglycerides 127 mg/dL (<150)
== END 2024-12-31 09:24 | disposition home or self-care (01) ==
LOC: HO.LAB 09:23
PROVIDERS: PCP Physician Assistant; Visit Provider Physician Assistant
DX: E11.9 Type 2 diabetes mellitus without complications (principal); I10 Essential (primary) hypertension
CPT/HCPCS: 36415; 80053; 80061; 83036

== ENCOUNTER 2025-04-22 08:19 | Outpatient (REF) | payer MEDICARE, MEDICAID, SELFPAY ==
--- OUTSIDE RECORDS SUMMARY | 2025-04-22 08:24 | XMS_ITS | Encounter Summary ---
Author Organization [facility] Address [address] [place] [address] Phone Care Team Providers Care Sales Associate Fishing Name Role Phone Provider, [facility] Primary Care Provider [phone] Reason for Visit * Reason Comments Med Refill Encounter Details Date Type Department Care Team (Late st Contact Info) Description 03/02/2020 Refill [facility] [place] [address] [place] [address] Kena Hanks MD [address] [place] [address] Vitamin D deficiency Social History Tobacco Use Types Packs/Day Years Used Date Smoking Tobacco: Never Smokeless Tobacco: Never Alcohol Use Standard Drinks/Week Comments Never 0 (1 standard drink = 0.6 oz pur e alcohol) Hunger/Food Answer Date Recorded In the last 12 months, did y ou or your family ever eat less than you felt you should because there wasn't enough money for food? No 12/25/2019 Stable Housing Answer Date Recorded Are you worried that in the next 2 months you may not have stable housing? No 12/25/2019 Transportation Concerns Answer Date Rec orded In the last 12 months, have you or your family ever had to go without healthcare because you didn't have a way to get there? No 12/25/2019 Hazards in Home Answer Date Recorded Think about the place you li ve. Do you have problems with any of the following? Pests (mice or roaches), mold, no/not working smoke detectors, water leaks, no window guards. No 2019 Financing Utilities Answer Date Recorde d In the last 12 months, has t he electric, gas, oil, or water company threatened to shut off your services in your home? No 12/25/2019 Safety at Home Answer Date Recorded Are you or your family worried about feeling saf e in your home? No 12/25/2019 Outside Support Answer Date Recorded Do you feel that you need mo re support from other people or programs to help you care for yourself or your family? No 12/25/2019 Understanding Health Concerns Answer Da te Recorded Do you need help understandi ng your or your child's healthcare needs (diagnosis, medications, plan, etc.)? No 12/25/2019 Financing Health Concerns Answer Date R ecorded In the last 12 months, was t here a time when your child needed to see a doctor or get medications or supplies but could not because of cost? No 12/25/2019 Missing School or Work Answer Date Onesimo rded Did you or your child miss s chool or work because of a health problem that could have been avoided? No 12/25/2019 Sex and Gender Information Value Date Recorded Sex Assigned at Male 12/30/2019 2:07 PM EDT Legal Sex Male 5:05 PM EDT Gender Identity Male 12/30/2019 2:07 PM EDT Sexual Orientation Straight 12/30/2019 2: 07 PM EDT documented as of this encounter Miscellaneous Notes * Telephone Encounter - Melinda Womack LPN - 03/02/2020 1:11 PM EDT Needs refill on Vit D. Last pe 12/2019 documented in this encounter Plan of Treatment Not on file documented as of this encounter Visit Diagnoses Diagnosis Vitamin D deficiency documented in this encounter Care Teams Sales Associate Fishing Relationship Specialty Start Date End Date Provider, MD Sejal [address] [place] [address] PCP - General Pediatrics 10/16/21 01/20/22 documented as of this encounter
--- OUTSIDE RECORDS SUMMARY | 2025-04-22 08:24 | XMS_ITS | Clinical Summary ---
Author Organization [facility] Address [address] [place] [id number] Phone Care Team Providers Care First Assist Name Role Phone Kena Hanks MD Primary Care Provider [phone] Social History Tobacco Use Types Packs/Day Years [...] HIV ONE-TIME SCREENING (18-6 5 YEARS) 2019 INFLUENZA VACCINE (#1) 2024 COVID-19 VACCINE ( - 2024-2 6 season) 2025 HEPATITIS A VACCINES Aged Out No long [...] topic Medical Devices Not on file Insurance [place] [address] [facility] [place] [facility] [place] [facility] [place] [facility] [address] [place] [address] [address] [place] [address] [address] [facility] [place] [id number] [facility] [place] [address] [facility] POS EPO [facility] Care Teams First Assist Relationship Specialty Start Date End Date Kena Hanks MD [address] [place] [address] ANGELA Maldonado [address] PCP - General Pediatrics 06/03/21 Additional Source Comments The information contained in this document represents components of the legal health record. It is not the complete legal health record.[facility]
--- OUTSIDE RECORDS SUMMARY | 2025-04-22 08:24 | XMS_ITS | Clinical Summary ---
Author Organization [facility] Address [address] [place] [address] Phone Care Team Providers Care Overlock Elastic Attacher Name Role Phone Unavailable Primary Care Provider Unavailabl e Allergies No known active allergies Medications VYVANSE 40 MG capsule Take 40 mg by mouth every morning. 0 8 Active polyethylene glycol (MIRALAX) powderIndications :Slow transit constipation Take 17 g by mouth daily. Stir and dissolve powder into 4 to 8 ounces of beverage and then drink. 289 g 3 8 Active mirtazapine 15 MG tablet Take 15 mg by mouth nightly. 0 0 Active Cholecalciferol (D3 Super Strength) 50 MCG (1999 UT) capsuleIndication s:Vitamin D deficiency Take 1 capsule by mouth once daily. 90 each 3 1 Active loratadine 10 MG tabletIndications :Rhinorrhea TAKE 1 TABLET BY MOUTH DAILY 90 tablet 1 2 Active Active Problems Problem Noted Date Diagnosed Date Counseling and coordination of care 01/25/2019 Assessment & Plan (01/05/2021 10:44 PM EDT): Discussed with Leonela Quintero - mom with notes from retinal specialist and from driving data governance consultant re getting license. ? Where to go for vision therapist Severe myopia of left eye 01/12/2019 Overview (12/30/2019): Followed by ophthomology. Wears glasses. 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 Would need special eye training to be able to get a drivers license. Assessment & Plan (01/05/2021 10:57 PM EDT): Pt is followed by Dr kline and has seen a vision therapist. He and his mom are wondering where to get vision therapy. Discussed with Leonela Quintero I also talked with mom alone and explained my concerns about Eric being able to drive even with vision therapy. 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 Assessment & Plan (12/30/2019 1:53 PM EDT): Left eye is much worse Vitamin D deficiency 09/16/2018 Overview (09/16/2018): Vit D level 09/03. Start daily vit D supplement 1000 Assessment & Plan (12/30/2019 1:49 PM EDT): Takes daily vit D supplement Slow transit constipation 04/19/2018 Overview (04/19/2018): Long hx of constipation. Has needed enema's in the past. Will start on miralax. Handout re dietary changes discussed and ordered. Assessment & Plan (01/05/2021 10:58 PM EDT): Rare miralax use as needed. Assessment & Plan (12/30/2019 2:49 PM EDT): Now having large BM a few times a week. STill with diet poor in fruits and veges. rarely takes miralax. No acute concerns Assessment & Plan (08/27/2018 3:33 PM EDT): Continues with constipation. Is on miralax as needed. Discussed adding fruits and veges to diet. Increase miralax to full cap daily mixed in Chronic seasonal allergic rhinitis due to pollen 04/24/2017 Assessment & Plan (08/27/2018 2:50 PM EDT): Well controlled with claritin daily as needed. Assessment & Plan (04/24/2017 3:04 PM EST): Continue Claritin 10mg. Anxiousness 03/12/2017 Overview (03/12/2017): Followed by Dr Almodovar Assessment & Plan (12/30/2019 1:48 PM EDT): Takes mirtazapine 15 mg QHS for sleep Assessment & Plan (08/27/2018 3:10 PM EDT): Started mirtazapine 2 months ago for sleep and depression/anxiety Assessment & Plan (04/24/2017 2:42 PM EST): Continue your appointments with Dr Almodovar and discuss your anxiety with him at the next visit. Assessment & Plan (03/12/2017 2:25 PM EDT): We discussed Eric's anxiety. It may be due to being in a new school and also to having more awareness of his learning issues. We discussed practicing mindfullness, gratitude ets. Please discusse Eric's anxiety with Dr Almodovar. Continue to work closely with school. Encourage more whole fat foods. Follow up at the next PE. 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 followed by Dr Almodovar. Pt has pos depression screen today - Anxiety and sleep issues. discussed with mom and recommened she talk with DR Almodovar about these issues. Followed by Dr Almodovar and on Nemo. At [facility] [employer] via school Spontaneously program. Assessment & Plan (01/03/2021 3:43 PM EDT): Still followed by Dr Almodovar and is on Vyvanse for concentration Also on hydroxyzine 25mg in the evening Assessment & Plan (12/30/2019 1:46 PM EDT): Followed by Dr Almodovar every 3 months for Vyvanse and mirtazapine 15mg for sleep Assessment & Plan (08/27/2018 3:10 PM EDT): Continues on Vyvanse 40 mg in the morning prescribed by Dr Almodovar. Assessment & Plan (01/11/2018 5:08 PM EDT): Referral to neuropsych Assessment & Plan (04/24/2017 3:03 PM EST): Followed by Dr Almodovar and on Vyvanse. At [facility] via school Spontaneously program. Assessment & Plan (03/12/2017 2:23 PM EDT): Continue Vyvanse as prescribed by Dr Almodovar. Non-verbal learning disorder 04/22/2016 Assessment & Plan (01/11/2018 5:08 PM EDT): Referral to neuropsych Intellectual disability 12/06/2009 Overview (09/20/2021): Neuropsych testing fall 2018 - FSIQ 68 Neurospsych testing September 2021 done 2nd to psychotic episode requiring hosp May 2021. Worsening test results with FSIQ - 61, and much slower processing speeds. Assessment & Plan (04/19/2018 10:20 AM EST): Recent neuropsych testing discussed. Mom asking if Eric will need to change primary doc soon. I explained I will see him until age 22. She seemed relieved. Resolved Problems Problem Noted Date Diagnosed Date Resolved Date Episodic tension-type headac he, not intractable 03/12/2017 01/05/2021 Assessment & Plan (12/30/2019 2:48 PM EDT): Gets miguel more when he is in school. Has gotten intermittent MIGUEL for years. He thinks they happen more when he is hot, or has not slept well. Discussed self care including a regular sleep schedule and drinking lots of water. Also discussed working on eating a more varied diet and getting exercise. Assessment & Plan (04/24/2017 5:16 PM EST): You get headaches at school which mom feels is 2nd to anxiety. You are easily over stimulated when there is a lot going on. Follow up with me if your headaches are worsening or getting in the way of school etc. Assessment & Plan (03/12/2017 2:22 PM EDT): You report that Eric is doing better and not having as many MIGUEL and now you wonder if they were related to anxiety. Eric is followed by Dr Almodovar for ADHD and has an upcoming appt with him next month. Speech and language disorder 04/22/2016 12/30/2019 Immunizations Immunization Administration Dates Next Due DTaP 5 04/29/2005, 4,11/11/2002,10/28,2001 H1N1 03/15/2009 HPV Vaccine 9 Valent 04/22/2016,08/01/2015,02/14 Hep A, ped/adol 03/10/2014,12/12/2010 Hep B, ped/adol 01/24/2002,2001,2001 Hib (PRP-T) 08/18/2002,2001,2001 IPV 04/29/2005, 2,2001,07/02 Influenza Split 05/24/2012,03/26/2011 Influenza, injectable, MDCK, preservative free, quadrivalent 04/22/2016 Influenza, injectable, quadr ivalent, preservative free 03/08/2020,04/19/2018,03/12/2017 Influenza, injectable, trivalent 009,04/18/2008,05/06/2006,03/25,04/04/2004 Influenza, intranasal, quadrivalent 02/14/2015,1 MMR 04/29/2005,05/02/2002 Meningococcal B Trumenba 01/03/2021 Meningococcal Conj (Menactra) MCV4P 08/27/2018,0 05/24/2012 Pneumococcal Conjugate 11/11/2002,2002,01/24/2002,10/28 Tdap 05/24/2012 Varicella 08/09/2007,05/02/2002 Family History Medical History Relation Name Comments Asthma Father Cj Diabetes Father's Sister Alcoholism Maternal Grandfather Alzheimer's disease Maternal Grandmother Asthma Mother Monserrat Diabetes Mother Monserrat Diabetes Paternal Grandmother Relation Name Status Comments Father Cj Alive Father's Sister Maternal Grandfather Maternal Grandmother Mother Monserrat Alive Mother: Alive a nd well Other Family history of Diabetes mellitus, Family history of Colon polyps, Family history of Autism, Family history of Asthma, Family history of CVA MGM, Family history of Alzheimer's disease, Family history of Cancer, breast, Family history of ADD/ADHD, Family history of Cancer, pancreas, Family history of Seizure disorder Paternal Grandmother Social History Tobacco Use Types Packs/Day Years Used Date Smoking Tobacco: Never Smokeless Tobacco: Never Tobacco Cessation:Counseling Given: Yes Alcohol Use Standard Drinks/Week Comments Never 0 (1 standard drink = 0.6 oz pur e alcohol) Hunger/Food Answer Date Recorded In the last 12 months, did y ou or your family ever eat less than you felt you should because there wasn't enough money for food? No 01/02/2021 Stable Housing Answer Date Recorded Are you worried that in the next 2 months you may not have stable housing? No 01/02/2021 Transportation Concerns Answer Date Rec orded In the last 12 months, have you or your family ever had to go without healthcare because you didn't have a way to get there? No 01/02/2021 Hazards in Home Answer Date Recorded Think about the place you li ve. Do you have problems with any of the following? Pests (mice or roaches), mold, no/not working smoke detectors, water leaks, no window guards. No 2020 Financing Utilities Answer Date Recorde d In the last 12 months, has t he electric, gas, oil, or water company threatened to shut off your services in your home? No 01/02/2021 Safety at Home Answer Date Recorded Are you or your family worried about feeling saf e in your home? No 01/02/2021 Outside Support Answer Date Recorded Do you feel that you need mo re support from other people or programs to help you care for yourself or your family? No 01/02/2021 Understanding Health Concerns Answer Da te Recorded Do you need help understandi ng your or your child's healthcare needs (diagnosis, medications, plan, etc.)? No 01/02/2021 Financing Health Concerns Answer Date R ecorded In the last 12 months, was t here a time when your child needed to see a doctor or get medications or supplies but could not because of cost? No 01/02/2021 Missing School or Work Answer Date Onesimo rded Did you or your child miss s chool or work because of a health problem that could have been avoided? No 01/02/2021 Sex and Gender Information Value Date Recorded Sex Assigned at Male 12/30/2019 2:07 PM EDT Legal Sex Male 5:05 PM EDT Gender Identity Male 12/30/2019 2:07 PM EDT Sexual Orientation Straight 12/30/2019 2: 07 PM EDT Last Filed Vital Signs Vital Sign Reading Time Taken Comments Blood Pressure 122/72 01/03/2021 2:58 PM EDT Pulse 111 01/03/2021 2:58 PM EDT Temperature 36.8 C (98.3 F) 01/03/2021 2:58 PM EDT Respiratory Rate - - Oxygen Saturation - - Inhaled Oxygen Concentration - - Weight 76.7 kg (169 lb 3.2 oz) 01/03/2021 2:58 P M EDT Height 172.7 cm (5' 8 ) 01/03/2021 2:58 PM EDT Body Mass Index 25.73 01/03/2021 2:58 PM EDT Plan of Treatment Health Maintenance Due Date Last Done Comments Men B Vaccine (2 of 2 - Trum enba SCDM 2-dose series) 07/06/2021 01/03/2021 DTaP,Tdap,and Td Vaccines (7 - Td or Tdap) 05/24/2022 05/24/2012, 04/29/2005, 04/29/2004, Additional history exists Influenza Vaccines (#1) 2024 03/08/20 20, 04/19/2018, 03/12/2017, Additional history exists COVID-19 Vaccine (2024-2 6 season) 2025 12/11/2020, 11/13/2020 Hepatitis B Vaccines Completed 01/24/2002, 2001, 2001 HIB Vaccines Completed 08/18/2002, 10/16, 2001 Pneumococcal Vaccine Completed 11/11/2002, 08/18/2002, 01/24/2002, Additional history exists IPV Vaccines Completed 04/29/2005, 01/2002, 2001, Additional history exists MMR Vaccines Completed 04/29/2005, 05/02/2002 Varicella Vaccines Completed 08/09/2007, 05/02/2002 Hepatitis A Vaccines Completed 03/10/2014, 12/13/19 11 HPV Vaccines Completed 04/22/2016, 07/16, 02/14/2015 Meningococcal Vaccine Completed 08/27/2018, 013
--- OUTSIDE RECORDS SUMMARY | 2025-04-22 08:24 | XMS_ITS | Encounter Summary ---
Author Organization [facility] Address [address] [place] [address] Phone Care Team Providers Care Fire Lieutenant Name Role Phone Provider, [facility] Primary Care Provider [phone] Reason for Visit * Reason Comments Med Refill Encounter Details Date Type Department Care Team (Late st Contact Info) Description 2019 Refill [facility] [place] [address] [place] [address] Kena Hanks MD [address] [place] [address] Vitamin D deficiency Social History Tobacco Use Types Packs/Day Years Used Date Smoking Tobacco: Never Smokeless Tobacco: Never Alcohol Use Standard Drinks/Week Comments Never 0 (1 standard drink = 0.6 oz pur e alcohol) Hunger/Food Answer Date Recorded No 08/27/2018 Stable Housing Answer Date Recorded 0 08/27/2018 Transportation Concerns Answer Date Rec orded No 08/27/2018 Hazards in Home Answer Date Recorded No 08/27/2018 Financing Utilities Answer Date Recorde d No 08/27/2018 Safety at Home Answer Date Recorded No 08/27/2018 Outside Support Answer Date Recorded No 08/27/2018 Understanding Health Concerns Answer Da te Recorded No 08/27/2018 Financing Health Concerns Answer Date R ecorded No 08/27/2018 Missing School or Work Answer Date Onesimo rded No 08/27/2018 Sex and Gender Information Value Date Recorded Sex Assigned at Male 12/30/2019 2:07 PM EDT Legal Sex Male 5:05 PM EDT Gender Identity Male 12/30/2019 2:07 PM EDT Sexual Orientation Straight 12/30/2019 2: 07 PM EDT documented as of this encounter Miscellaneous Notes * Telephone Encounter - Marine Pedro LPN - 2019 12:48 PM EST Pharm fax refill request vit D. EH documented in this encounter Plan of Treatment Not on file documented as of this encounter Visit Diagnoses Diagnosis Vitamin D deficiency documented in this encounter Care Teams Fire Lieutenant Relationship Specialty Start Date End Date Provider, MD Sejal [address] [place] [phone] PCP - General Pediatrics 10/16/21 01/20/22 documented as of this encounter
--- OUTSIDE RECORDS SUMMARY | 2025-04-22 08:24 | XMS_ITS | Clinical Summary ---
Author Organization [facility] Address [address] [place] [address] Care Team Providers Care Oil And Gas Superintendent Name Role Phone Unavailable Primary Care Provider Unavailabl e Allergies No known active allergies Medications VitaJoy Gummies 2.5 MG chewable tablet CHEW 1 TABLET BY MOUTH EVERYDAY AT BEDTIME 3 Active zolpidem (Ambien) 10 MG tablet Take 10 mg by mouth in the morning. 3 Active omeprazole (PriLOSEC) [address] capsule Take 20 mg by mouth in the morning. 3 Active polyethylene glycol, PEG, 3350 (Glycolax) 17 GM/SCOOP powder Take 17 g by mouth. 8 Active loratadine (Claritin) 10 MG tablet Take 10 mg by mouth in the morning. 3 Active Accu-Chek Softclix Lancets lancets USE TO TEST BLOOD SUGAR ONCE DAILY 2 Active haloperidol (Haldol) 5 MG tablet TAKE 1 TABLET BY MOUTH TWICE A DAY DIRECTED 3 Active FREESTYLE LITE test strip USE TWICE DAILY DIRECTED FOR MONITORING GLUCOSE 2 Active escitalopram (Lexapro) 10 MG tablet Take 10 mg by mouth in the morning. 3 Active cloNIDine (Catapres) 0.1 MG tablet Take 0.1 mg by mouth if needed each day. 3 Active cholecalciferol (Vitamin D-3) 50 MCG (1999) capsule Take 1 capsule by mouth in the morning. 1 Active benztropine (Cogentin) 1 MG tablet Take 1 mg by mouth 2 times daily. 3 Active Alcohol Swabs (B-D SINGLE USE SWABS REGULAR) pads USE ONCE DAILY DIRECTED FOR MONITORING GLUCOSE, DX CODE E11.9 Active Social History Tobacco Use Types Packs/Day Years Used Date Smoking Tobacco: Never Smokeless Tobacco: Never Tobacco Cessation:Counseling Given: Not Answered Sex and Gender Information Value Date Recorded Sex Assigned at Male 09/23/2022 5:45 PM EDT Legal Sex Male 5:29 PM EDT Gender Identity Male 09/23/2022 5:45 PM EDT Sexual Orientation Straight 09/23/2022 5: 45 PM EDT Last Filed Vital Signs Vital Sign Reading Time Taken Comments Blood Pressure 122/74 06/30/2024 1:05 PM EST Pulse 80 06/30/2024 1:05 PM EST Temperature - - Respiratory Rate - - Oxygen Saturation - - Inhaled Oxygen Concentration - - Weight - - Height - - Body Mass Index - - Plan of Treatment Health Maintenance Due Date Last Done Comments Chlamydia and Gonorrhea Screening 2001 Depression Screening 2001 HIV Screening 2001 SDOH Screening 2001 Disability Screening 2001 Alcohol/Substance Use Screening 2013 Family Planning (PISQ) 2016 Hepatitis C Screening 2019 Meningococcal B Vaccine (2 of 2 - Trumenba SCDM 2-dose series) 07/06/2021 01/03/2021 Dental Oral Exam 12/29/2024 06/30/2024 Dental Prophylaxis 12/29/2024 06/30/2024, 10/02/2022 COVID-19 Vaccine ( season) 2025 12/11/2021, 12/11/2020, 11/13/2020 Influenza Vaccine (#1) 2025 , 03/08/2020, 04/19/2018, Additional history exists Tobacco Screening 06/30/2025 06/30/2024 Dental X-Ray: Bitewings 07/01/2025 06/30/2024, 10/02 Dental X-Ray: Full Mouth 06/10/2026 06/09/2023, 09/15 DTaP/Tdap/Td Vaccines (8 - Td or Tdap) 11/06/2032 11/06/2022, 05/24/2012, 04/29/2005, Additional history exists Zoster Vaccines (1 of 2) 2051 RSV Patients and Patients Aged 60 years or older (1 - 1-dose 75+ series) 2076 Hepatitis B Vaccines Completed 01/24/2002, 2001, 2001 HIB Vaccines Completed 08/18/2002, 10/16, 2001 Pneumococcal Vaccine: Pediatrics (0 to 5 Years) and At-Risk Patients (6 to 49) Years Aged Out 11/11/2002, 11/11/2002, 08/18/2002, Additional history exists No longer eligible based on patient's age to complete this topic IPV Vaccines Completed 04/29/2005, 04/17, 01/24/2002, Additional history exists Hepatitis A Vaccines Completed 03/10/2014, 12/13/19 11 HPV Vaccines Completed 04/22/2016, 07/16, 02/14/2015, Additional history exists Meningococcal Vaccine Completed 08/27/2018 , 05/24/2012, 05/24/2012 RSV under 20 months Aged Out No longe r eligible based on patient's age to complete this topic Rotavirus Vaccines Aged Out No longer eligible based on patient's age to complete this topic Procedures Procedure Name Priority Date/Time Associated Diagnosis Comments PROPHYLAXIS - ADULT Routine 06/30/2024 1 :00 PM EST BITEWINGS - 4 RADIOGRAPHIC IMAGES Routine 06/30/2024 1:00 PM EST PERIODIC ORAL EVALUATION - ESTABLISHED PATIENT Routine 06/30/2024 1:00 PM EST PANORAMIC RADIOGRAPHIC IMAGE Routine 06/09/2023 2:00 PM EST from Last 3 Months or Most Recently Relevant to Health Maintenance [facility] [id number] [facility] MEDICAID [id number] ADULT
--- OUTSIDE RECORDS SUMMARY | 2025-04-22 08:24 | XMS_ITS | Encounter Summary ---
Author Organization [facility] Address [address] [place] [id number] Phone Care Team Providers Care Property Analyst Name Role Phone Provider, Sejal SHAIKH Primary Care Provider [phone] Encounter Details Date Type Department Care Team (Late st Contact Info) Description 01/01/2017 Conversion Encounter [facility] [place] [address] [place] [address] Social History Tobacco Use Types Packs/Day Years Used Date Smoking Tobacco: Never Assessed Sex and Gender Information Value Date Recorded Sex Assigned at Male 12/30/2019 2:07 PM EDT Legal Sex Male 5:05 PM EDT Gender Identity Male 12/30/2019 2:07 PM EDT Sexual Orientation Straight 12/30/2019 2: 07 PM EDT documented as of this encounter Plan of Treatment Not on file documented as of this encounter Visit Diagnoses Not on filedocumented in this encounter Care Teams Property Analyst Relationship Specialty Start Date End Date Provider, MD [address] [place] [id number] PCP - General Pediatrics 10/16/21 01/20/22 documented as of this encounter
[2025-04-22 10:48] LABS: Alanine Aminotransferase 99 U/L (0-40); Albumin Level 4.5 g/dL (3.5-5.0); Alkaline Phosphatase 81 U/L (39-117); Aspartate Amino Transferase 50 U/L (5-37); Total Protein 7.0 g/dL (6.5-8.0)
== END 2025-04-22 08:20 | disposition home or self-care (01) ==
LOC: HO.LAB 08:19
PROVIDERS: PCP Physician Assistant; Visit Provider Physician Assistant
DX: E11.9 Type 2 diabetes mellitus without complications (principal); R79.89 Other specified abnormal findings of blood chemistry
CPT/HCPCS: 36415; 80076; 83036

== ENCOUNTER 2025-04-27 07:55 | Outpatient (REF) | payer MEDICARE, MEDICAID, SELFPAY ==
[2025-04-27 08:44] LABS: Hematocrit 39.3 % (42.0-52.0); Hemoglobin 13.8 g/dl (14.0-18.0); Imm Gran Abs Auto 0.02 X10*3/uL (0.00-0.03); Imm Gran Pct Auto 0.4 % (0.0-0.4); Lymphocytes Absolute Auto 1.2 X10*3/uL (1.2-4.9); Mean Corpuscular HGB Conc 35.1 g/dl (31.0-36.0); Mean Corpuscular Hemoglobin 32.2 pg (27.0-33.0); Mean Corpuscular Volume 91.8 fL (80.0-98.0); NRBC Abs Auto 0.000 X10*3/uL (0.0-0.012); NRBC Pct Auto 0.0 /100WBC (0.0-0.2); Red Blood Count 4.28 X10*6/uL (4.60-5.80)
[2025-04-27 08:45] LABS: Platelet Count 204 X10*3/uL (160-400); White Blood Count 5.2 X10*3/uL (4.8-10.8)
[2025-04-27 09:32] LABS: Alanine Aminotransferase 108 U/L (0-40); Albumin Level 4.5 g/dL (3.5-5.0); Alkaline Phosphatase 80 U/L (39-117); Anion Gap 13 (12-20); Aspartate Amino Transferase 66 U/L (5-37); Blood Urea Nitrogen 8 mg/dL (9-16); Calcium 9.2 mg/dL (8.4-10.2); Carbon Dioxide 27 mmol/L (22-29); Chloride 101 mmol/L (96-108); Cholesterol 166 mg/dL (<200); Estimated Glomerular Filt Rate > 60; HDL Cholesterol 31 mg/dL (>40); Potassium 3.9 mmol/L (3.3-5.1); Sodium 137 mmol/L (135-145); Total Protein 7.1 g/dL (6.5-8.0); Triglycerides 142 mg/dL (<150)
[2025-04-27 09:51] LABS: Thyroid Stimulating Hormone 0.75 uIU/mL (0.32-4.0)
== END 2025-04-27 07:56 | disposition home or self-care (01) ==
LOC: HO.LAB 07:55
PROVIDERS: PCP Physician Assistant; Visit Provider Dietitian, Registered
DX: Z79.899 Other long term (current) drug therapy (principal)
CPT/HCPCS: 36415; 80053; 80061; 80164; 83036; 84443; 85025